=== PATIENT | male | born 1970 | race African-American/Black ===

== ENCOUNTER 2017-09-24 07:43 | Emergency (ER) | payer MEDICAID ==
[~2017-09-24] VITALS: Ht 180.3 cm; Wt 161.0 kg
[2017-09-24] VITALS (11 sets, daily range): BP systolic 160–216; BP diastolic 90–111
[~2017-09-24 07:43] MED LIST: AMLO10TA80 PO; DOCU-138 PO; FAMO20TA8 PO; GABA-531 PO; INSLIS SUBCUT; LANTUSUD SUBCUT; LISI-604 PO; NEPVIT PO
[2017-09-24] MEDS ORDERED: OXYCODONE HCL/ACETAMINOPHEN 5/325MG TABLET PO ONE (08:45)
[2017-09-24 09:05] LABS: BASOPHILS % 0.5 % (0.0-2.0); EOSINOPHILS % 8.8 % (0.0-5.0); HEMATOCRIT. 33.5 % (42.0-52.0); HEMOGLOBIN. 10.9 g/dL (14.0-18.0); LYMPHOCYTES % 33.5 % (20.0-50.0); MEAN CORPUSCULAR HEMOGLOBIN 30.1 pg (28.0-32.0); MEAN PLATELET VOLUME 8.4 fl (7.4-10.4); MONOCYTES % 9.6 % (2.0-8.0); NEUTROPHILS % 47.6 % (40.0-76.0); PLATELET 196 x1000/uL (130-400); RED BLOOD CELL COUNT 3.64 mill/uL (4.7-6.1); RED CELL DISTRIBUTION WIDTH 15.6 % (11.6-14.6)
[2017-09-24 09:12] LABS: CHLORIDE 102 mEq/L (98-107)
[2017-09-24 09:30] LABS: INR 1.1; PROTHROMBIN TIME 11.5 sec (9.4-11.6)
[2017-09-24] MEDS ORDERED: LIDOCAINE HCL 1% 20ML VIAL (Pyxis) INJ ONE (10:55)
[2017-09-24] MEDS ORDERED: SODIUM BICARBONATE 4% (2.4MEQ) 5ML VIAL IV ONE (10:55)
[2017-09-24] MEDS ORDERED: FENTANYL CITRATE/PF 50MCG/ML 2ML VIAL ONE (11:14)
== END 2017-09-24 14:00 | disposition home or self-care (01) ==
LOC: ER 08:35
DX: T82.898A Other specified complication of vascular prosthetic devices, implants and grafts, initial encounter (principal); E11.22 Type 2 diabetes mellitus with diabetic chronic kidney disease; I12.0 Hypertensive chronic kidney disease with stage 5 chronic kidney disease or end stage renal disease; N18.6 End stage renal disease; Z99.2 Dependence on renal dialysis; Z79.4 Long term (current) use of insulin; Z89.512 Acquired absence of left leg below knee; Z89.511 Acquired absence of right leg below knee; Z99.3 Dependence on wheelchair; Z79.01 Long term (current) use of anticoagulants; Y84.1 Kidney dialysis as the cause of abnormal reaction of the patient, or of later complication, without mention of misadventure at the time of the procedure; Y92.018 Other place in single-family (private) house as the place of occurrence of the external cause
CPT/HCPCS: 36415; 36569; 36581; 75825; 77001; 80053; 85025; 85610; 93005; 99285; C1725; C1750; C1766; C1769; J1642; J3010; J3490; Z7610; 99284

== ENCOUNTER 2018-03-12 12:35 | Emergency (ER) | payer MEDICAID ==
[~2018-03-12] VITALS: Ht 172.7 cm; Wt 80.0 kg
[2018-03-12] MEDS ORDERED: FLUORESCEIN SODIUM 1MG/STRIP BOTHEYE ONE (13:15)
[2018-03-12] MEDS ORDERED: TETRACAINE 0.5% OPHTH DROPS 4ML BOTHEYE ONE (13:15)
[2018-03-12] MEDS ORDERED: SULFACETAMIDE SODIUM 10% OPHTH DROPS 15ML BOTHEYE STA (13:47)
[2018-03-12] MEDS ORDERED: TIMOLOL MALEATE 0.5% OPHTH DROPS 5ML EACHEYE STA (13:47)
[2018-03-12] MEDS ORDERED: PILOCARPINE HCL 2% OPHTH DROPS 15ML BOTHEYE STA (13:47)
[2018-03-12] MEDS ORDERED: BRIMONIDINE 0.2% OPHTH DROPS 5ML BOTHEYE STA (13:59)
[2018-03-12] MEDS ORDERED: ACETAZOLAMIDE SODIUM 500MG/VIAL IV ONE (14:00)
[2018-03-12] MEDS ORDERED: MANNITOL 20% (20GM/100ML) BAG 500ML PREMIX IV ONE (14:15)
[2018-03-12 15:22] LABS: BASOPHILS % 0.4 % (0.0-2.0); EOSINOPHILS % 4.7 % (0.0-5.0); HEMATOCRIT. 38.8 % (42.0-52.0); HEMOGLOBIN. 12.9 g/dL (14.0-18.0); LYMPHOCYTES % 23.7 % (20.0-50.0); MEAN CORPUSCULAR HEMOGLOBIN 30.6 pg (28.0-32.0); MEAN CORPUSCULAR VOLUME 92.1 fL (80.0-94.0); MEAN PLATELET VOLUME 8.8 fl (7.4-10.4); MONOCYTES % 9.5 % (2.0-8.0); NEUTROPHILS % 61.7 % (40.0-76.0); PLATELET 183 x1000/uL (130-400); RED BLOOD CELL COUNT 4.21 mill/uL (4.7-6.1); RED CELL DISTRIBUTION WIDTH 16.2 % (11.6-14.6)
[2018-03-12 15:30] LABS: CHLORIDE 103 mEq/L (98-107)
[2018-03-12 15:31] LABS: INR 1.1; PARTIAL THROMBOPLASTIN TIME 35.1 sec (23.4-31.0); PROTHROMBIN TIME 10.8 sec (9.1-11.1)
[2018-03-12 18:08] VITALS: BP 148/90
== END 2018-03-12 18:20 | disposition short-term general hospital (02) ==
LOC: ER 12:35
DX: H40.20X0 Unspecified primary angle-closure glaucoma, stage unspecified (principal); H10.33 Unspecified acute conjunctivitis, bilateral; I13.10 Hypertensive heart and chronic kidney disease without heart failure, with stage 1 through stage 4 chronic kidney disease, or unspecified chronic kidney disease; E11.22 Type 2 diabetes mellitus with diabetic chronic kidney disease; N18.9 Chronic kidney disease, unspecified; Z79.4 Long term (current) use of insulin; Z89.512 Acquired absence of left leg below knee; Z79.899 Other long term (current) drug therapy; Z98.890 Other specified postprocedural states
CPT/HCPCS: 36415; 71045; 80053; 85025; 85610; 85730; 86850; 86900; 86901; 93005; 96374; 96375; 99285; J1120; J3490

== ENCOUNTER 2019-01-30 13:08 | Inpatient (IN) | payer MEDICAID ==
[~2019-01-30] VITALS: Ht 180.3 cm; Wt 136.1 kg
[2019-01-30] MEDS ORDERED: MORPHINE SULFATE 4 MG/ML CPJ (NOT FOR IM USE) IV STA (14:59)
[2019-01-30 15:11] LABS: BASOPHILS % 0.7 % (0.0-2.0); EOSINOPHILS % 7.4 % (0.0-5.0); HEMATOCRIT. 42.6 % (42.0-52.0); HEMOGLOBIN. 13.9 g/dL (14.0-18.0); MEAN CORPUSCULAR HEMOGLOBIN 30.1 pg (28.0-32.0); MEAN CORPUSCULAR VOLUME 92.2 fL (80.0-94.0); MEAN PLATELET VOLUME 8.9 fl (7.4-10.4); MONOCYTES % 6.1 % (2.0-8.0); NEUTROPHILS % 56.8 % (40.0-76.0); PLATELET 183 x1000/uL (130-400); RED BLOOD CELL COUNT 4.62 mill/uL (4.7-6.1); RED CELL DISTRIBUTION WIDTH 16.2 % (11.6-14.6)
[2019-01-30 15:14] LABS: CHLORIDE 99 mEq/L (98-107)
[2019-01-30 15:16] LABS: INR 1.1; PROTHROMBIN TIME 11.7 sec (9.6-11.0)
[2019-01-30] MEDS ORDERED: ACETAMINOPHEN 325MG TABLET PO PRN (18:15)
[2019-01-30] MEDS ORDERED: ONDANSETRON HCL 4MG/2ML INJ IV PRN (18:15)
[2019-01-30] MEDS ORDERED: ACETAMINOPHEN 325MG TABLET PO ONE (18:15)
[2019-01-30] MEDS: MORPHINE SULFATE 2 MG/ML CPJ (NOT FOR IM USE) IV PRN ×2 (18:43→23:25)
[2019-01-30 22:35] VITALS: BP 141/81
[2019-01-30] MEDS ORDERED: DEXTROSE 50% WATER 50ML SYRINGE IV PRN (23:00)
[2019-01-30] MEDS: DIPHENHYDRAMINE 50MG/ML VIAL IV PRN (23:25)
[2019-01-31 04:00] VITALS: BP 144/68
[2019-01-31] MEDS: MORPHINE SULFATE 2 MG/ML CPJ (NOT FOR IM USE) IV PRN ×2 (04:23→20:46)
[2019-01-31] MEDS: BLOOD SUGAR DIAGNOSTIC STRIP TEST SCH ×4 (06:13→20:49)
[2019-01-31] MEDS: INSULIN LISPRO 100 UNITS/ML SUBCUT SCH ×4 (06:13→21:00)
[2019-01-31 08:00] VITALS: BP 140/82
[2019-01-31] MEDS ORDERED: PNEUMOCOCCAL 23-VAL P-SAC VAC 0.5 ML IM ONE (08:00)
[2019-01-31 08:07] LABS: BASOPHILS % 0.5 % (0.0-2.0); EOSINOPHILS % 6.7 % (0.0-5.0); HEMATOCRIT. 38.7 % (42.0-52.0); HEMOGLOBIN. 12.7 g/dL (14.0-18.0); LYMPHOCYTES % 34.9 % (20.0-50.0); MEAN CORPUSCULAR HEMOGLOBIN 30.3 pg (28.0-32.0); MEAN PLATELET VOLUME 8.9 fl (7.4-10.4); MONOCYTES % 8.3 % (2.0-8.0); NEUTROPHILS % 49.6 % (40.0-76.0); PLATELET 146 x1000/uL (130-400); RED CELL DISTRIBUTION WIDTH 16.1 % (11.6-14.6)
[2019-01-31] MEDS: ASPIRIN 81MG TABLET PO SCH (08:20)
[2019-01-31 08:52] LABS: CHLORIDE 103 mEq/L (98-107)
[2019-01-31] MEDS ORDERED: NIFEDIPINE XL 60MG TAB PO SCH (09:00)
[2019-01-31 12:00] VITALS: BP 147/69
[2019-01-31] MEDS ORDERED: ALTEPLASE 2MG/VIAL ITC NR (12:30)
[2019-01-31] MEDS: DIPHENHYDRAMINE 50MG/ML VIAL IV PRN (14:22)
[2019-01-31 16:00] VITALS: BP 129/63
[2019-01-31 21:00] VITALS: BP 142/49
[2019-02-01] VITALS (16 sets, daily range): BP systolic 134–170; BP diastolic 68–98
[2019-02-01] MEDS: DIPHENHYDRAMINE 50MG/ML VIAL IV PRN (03:38)
[2019-02-01] MEDS: BLOOD SUGAR DIAGNOSTIC STRIP TEST SCH ×3 (06:34→16:27)
[2019-02-01] MEDS: INSULIN LISPRO 100 UNITS/ML SUBCUT SCH ×3 (06:34→16:28)
[2019-02-01] MEDS ORDERED: LIDOCAINE HCL 1% 20ML VIAL (Pyxis) INJ ONE (08:59)
[2019-02-01] MEDS ORDERED: SODIUM BICARBONATE 4% (2.4MEQ) 5ML VIAL IV ONE (08:59)
[2019-02-01] MEDS ORDERED: CEFAZOLIN 1000MG PREMIX 50 ML IV ONE ×2 (10:19→11:00)
[2019-02-01] MEDS ORDERED: FENTANYL CITRATE/PF 50MCG/ML 2ML VIAL ONE (10:20)
[2019-02-01] MEDS ORDERED: FENTANYL CITRATE/PF 50MCG/ML 2ML VIAL IV ONE (10:45)
[2019-02-01] MEDS: ASPIRIN 81MG TABLET PO SCH (12:29)
[2019-02-01] MEDS ORDERED: HEPARIN SODIUM 1,000 UNIT/1ML VIAL IV NR (15:15)
[2019-02-01] MEDS: MORPHINE SULFATE 2 MG/ML CPJ (NOT FOR IM USE) IV PRN (16:26)
== END 2019-02-01 19:45 | disposition home or self-care (01) | DRG 466 ==
LOC: ER 13:08 → EDBEDREQ 15:21 → 8WST 17:09 → EDBEDREQTM 17:13 → EDBEDREQ 17:13 → ENRESERV 20:57 → 8WST 01-31 23:04
PROVIDERS: ADMIT Internal Medicine; ATTEND Internal Medicine
PROC: 5A1D70Z Performance of Urinary Filtration, Intermittent, Less than 6 Hours Per Day (ICD-10-PCS; principal; 2019-01-31)
PROC: 0JHM3XZ Insertion of Tunneled Vascular Access Device into Left Upper Leg Subcutaneous Tissue and Fascia, Percutaneous Approach (ICD-10-PCS; 2019-02-01)
PROC: 06H033Z Insertion of Infusion Device into Inferior Vena Cava, Percutaneous Approach (ICD-10-PCS; 2019-02-01)
PROC: B5191ZA Fluoroscopy of Inferior Vena Cava using Low Osmolar Contrast, Guidance (ICD-10-PCS; 2019-02-01)
DX: T82.898A Other specified complication of vascular prosthetic devices, implants and grafts, initial encounter (principal); I12.0 Hypertensive chronic kidney disease with stage 5 chronic kidney disease or end stage renal disease; I24.8 Other forms of acute ischemic heart disease; N18.6 End stage renal disease; E66.01 Morbid (severe) obesity due to excess calories; I44.0 Atrioventricular block, first degree; H54.7 Unspecified visual loss; Y73.8 Miscellaneous gastroenterology and urology devices associated with adverse incidents, not elsewhere classified; Z68.41 Body mass index [BMI] 40.0-44.9, adult; Z89.611 Acquired absence of right leg above knee; Z89.612 Acquired absence of left leg above knee; Z99.2 Dependence on renal dialysis; Z79.899 Other long term (current) drug therapy; Y92.89 Other specified places as the place of occurrence of the external cause; Z79.82 Long term (current) use of aspirin
CPT/HCPCS: 36415; 36581; 71045; 77001; 80048; 82962; 83605; 83880; 84484; 90732; 93005; 93306; 96374; 99152; 99153; 99285; C1725; C1750; C1769; C1893; J0690; J1200; J1642; J1644; J2270; J2997; J3010; J3490; G0500

== ENCOUNTER 2019-11-02 07:13 | Inpatient (IN) | payer MEDICAID ==
[~2019-11-02] VITALS: Ht 152.4 cm; Wt 146.3 kg
[2019-11-02 08:34] LABS: BASOPHILS % 0.6 % (0.0-2.0); EOSINOPHILS % 9.2 % (0.0-5.0); HEMOGLOBIN. 11.9 g/dL (14.0-18.0); LYMPHOCYTES % 30.6 % (20.0-50.0); MEAN CORPUSCULAR HEMOGLOBIN 30.7 pg (28.0-32.0); MEAN CORPUSCULAR VOLUME 92.8 fL (80.0-94.0); MEAN PLATELET VOLUME 9.3 fl (7.4-10.4); MONOCYTES % 7.9 % (2.0-8.0); NEUTROPHILS % 51.7 % (40.0-76.0); PLATELET 163 x1000/uL (130-400); RED BLOOD CELL COUNT 3.88 mill/uL (4.7-6.1); RED CELL DISTRIBUTION WIDTH 15.2 % (11.6-14.6)
[2019-11-02] MEDS ORDERED: ALTEPLASE 2MG/VIAL ITC STA (09:15)
[2019-11-02] MEDS ORDERED: IOHEXOL-300 100 ML BOTTLE ONE (10:59)
[2019-11-02] MEDS ORDERED: ACETAMINOPHEN 325MG TABLET PO PRN (12:30)
[2019-11-02] MEDS ORDERED: DIPHENHYDRAMINE 50MG/ML VIAL IV PRN (12:30)
[2019-11-02] MEDS ORDERED: CLONIDINE 0.1MG TABLET PO PRN (12:30)
[2019-11-02] MEDS ORDERED: ONDANSETRON HCL 4MG/2ML INJ IV PRN (12:30)
[2019-11-02] MEDS ORDERED: IPRATROPIUM/ALBUTEROL 0.5-3(2.5)MG/3ML NEB HHN PRN (12:30)
[2019-11-02 12:48] LABS: PHOSPHORUS 4.5 mg/dL (2.5-4.9)
[2019-11-02 14:00] VITALS: BP 148/83
[2019-11-02 14:48] VITALS: BP 148/83
[2019-11-02 16:00] VITALS: BP 116/61
[2019-11-02] MEDS ORDERED: MORPHINE SULFATE 2 MG/ML CPJ (NOT FOR IM USE) IV PRN (18:45)
[2019-11-02 20:49] VITALS: BP 120/72
[2019-11-02] MEDS: HEPARIN 5000 UNITS/ML VIAL SUBCUT SCH (20:50)
[2019-11-03 00:24] VITALS: BP 164/91
[2019-11-03] MEDS ORDERED: HEPARIN SODIUM 1,000 UNIT/1ML VIAL IV NR (00:30)
[2019-11-03 04:00] VITALS: BP 143/80
[2019-11-03 06:18] LABS: BASOPHILS % 0.5 % (0.0-2.0); EOSINOPHILS % 9.7 % (0.0-5.0); HEMATOCRIT. 35.6 % (42.0-52.0); HEMOGLOBIN. 11.8 g/dL (14.0-18.0); LYMPHOCYTES % 28.4 % (20.0-50.0); MEAN CORPUSCULAR VOLUME 93.7 fL (80.0-94.0); MEAN PLATELET VOLUME 9.9 fl (7.4-10.4); MONOCYTES % 7.5 % (2.0-8.0); NEUTROPHILS % 53.9 % (40.0-76.0); PLATELET 134 x1000/uL (130-400); RED CELL DISTRIBUTION WIDTH 15.4 % (11.6-14.6)
[2019-11-03 06:33] LABS: CHLORIDE 101 mEq/L (98-107)
[2019-11-03 06:58] LABS: LDL CHOLESTEROL 48 mg/dL (5-100)
[2019-11-03 07:00] LABS: HDL CHOLESTEROL 32 mg/dL (40-59)
[2019-11-03 08:00] VITALS: BP 165/85
[2019-11-03] MEDS: HEPARIN 5000 UNITS/ML VIAL SUBCUT SCH (09:23)
[2019-11-03 11:37] VITALS: BP 172/88
[2019-11-03] MEDS ORDERED: AMLODIPINE 10MG TABLET PO NR (12:30)
[2019-11-03 13:44] VITALS: BP 123/76
== END 2019-11-03 21:37 | disposition home or self-care (01) | DRG 206 ==
LOC: ER 07:36 → ENRESERV 10:11 → 6WST 11:08 → EDBEDREQTM 11:13 → EDBEDREQ 11:13 → UNDODISIN 11-03 16:17
PROVIDERS: ADMIT Internal Medicine; ATTEND Internal Medicine
PROC: 5A1D70Z Performance of Urinary Filtration, Intermittent, Less than 6 Hours Per Day (ICD-10-PCS; principal; 2019-11-02)
PROC: 3E03317 Introduction of Other Thrombolytic into Peripheral Vein, Percutaneous Approach (ICD-10-PCS; 2019-11-02)
DX: T82.868A Thrombosis due to vascular prosthetic devices, implants and grafts, initial encounter (principal); E11.22 Type 2 diabetes mellitus with diabetic chronic kidney disease; E83.42 Hypomagnesemia; E87.5 Hyperkalemia; I12.0 Hypertensive chronic kidney disease with stage 5 chronic kidney disease or end stage renal disease; N18.6 End stage renal disease; Y71.2 Prosthetic and other implants, materials and accessory cardiovascular devices associated with adverse incidents; T82.49XA Other complication of vascular dialysis catheter, initial encounter; Z20.828 Contact with and (suspected) exposure to other viral communicable diseases; Z89.511 Acquired absence of right leg below knee; Z89.512 Acquired absence of left leg below knee; Z99.2 Dependence on renal dialysis; Y92.89 Other specified places as the place of occurrence of the external cause; Z79.899 Other long term (current) drug therapy; Z79.4 Long term (current) use of insulin
CPT/HCPCS: 36415; 74177; 80048; 80053; 80061; 82962; 83735; 84100; 84443; 85025; 87635; 93005; 93971; 99285; J1644; J2997; Q9967

== ENCOUNTER 2019-11-07 06:58 | Emergency (ER) | payer MEDICAID ==
[~2019-11-07] VITALS: Ht 167.6 cm; Wt 150.0 kg
[2019-11-07 08:18] LABS: BASOPHILS % 0.8 % (0.0-2.0); EOSINOPHILS % 8.8 % (0.0-5.0); HEMATOCRIT. 31.8 % (42.0-52.0); HEMOGLOBIN. 10.8 g/dL (14.0-18.0); LYMPHOCYTES % 27.7 % (20.0-50.0); MEAN CORPUSCULAR HEMOGLOBIN 31.7 pg (28.0-32.0); MEAN CORPUSCULAR VOLUME 93.4 fL (80.0-94.0); MEAN PLATELET VOLUME 9.8 fl (7.4-10.4); MONOCYTES % 9.1 % (2.0-8.0); NEUTROPHILS % 53.6 % (40.0-76.0); PLATELET 133 x1000/uL (130-400); RED CELL DISTRIBUTION WIDTH 15.3 % (11.6-14.6)
[2019-11-07 08:24] LABS: INR 1.2; PROTHROMBIN TIME 12.3 sec (9.6-11.0)
[2019-11-07 08:37] LABS: CHLORIDE 99 mEq/L (98-107)
[2019-11-07 11:07] VITALS: BP 135/87
== END 2019-11-07 11:07 | disposition home or self-care (01) ==
LOC: ER 07:12 → CANBEDREQ 15:18
DX: T82.41XA Breakdown (mechanical) of vascular dialysis catheter, initial encounter (principal); Y82.8 Other medical devices associated with adverse incidents; Y92.89 Other specified places as the place of occurrence of the external cause; I12.0 Hypertensive chronic kidney disease with stage 5 chronic kidney disease or end stage renal disease; E11.22 Type 2 diabetes mellitus with diabetic chronic kidney disease; N18.6 End stage renal disease; D64.9 Anemia, unspecified; H54.7 Unspecified visual loss; Z99.2 Dependence on renal dialysis; Z79.4 Long term (current) use of insulin; Z79.899 Other long term (current) drug therapy
CPT/HCPCS: 36415; 71045; 80053; 85025; 93005; 99285

== ENCOUNTER 2019-11-18 07:28 | Emergency (ER) | payer MEDICAID ==
[~2019-11-18] VITALS: Ht 172.7 cm; Wt 153.0 kg
[2019-11-18] MEDS ORDERED: OXYCODONE HCL/ACETAMINOPHEN 5/325MG TABLET PO ONE (08:15)
[2019-11-18] MEDS ORDERED: MORPHINE SULFATE 4 MG/ML CPJ (NOT FOR IM USE) IV ONE (11:00)
[2019-11-18 12:45] VITALS: BP 140/84
== END 2019-11-18 13:15 | disposition home or self-care (01) ==
LOC: ER 07:28 → CANBEDREQ 15:27
DX: G89.18 Other acute postprocedural pain (principal); R51 Headache; E11.9 Type 2 diabetes mellitus without complications; Z79.899 Other long term (current) drug therapy; Z79.4 Long term (current) use of insulin
CPT/HCPCS: 70486; 96374; 99284; J2270

== ENCOUNTER 2019-12-05 22:59 | Inpatient (IN) | payer MEDICAID ==
[~2019-12-05] VITALS: Ht 167.6 cm; Wt 160.1 kg
[2019-12-06] MEDS ORDERED: KETOROLAC 30MG/ML VIAL IV STA (00:11)
[2019-12-06] MEDS ORDERED: ONDANSETRON HCL 4MG/2ML INJ IV STA ×2 (00:11→01:44)
[2019-12-06] MEDS ORDERED: SODIUM CHLORIDE 0.9% 500 ML IV ONE (00:15)
[2019-12-06 00:59] LABS: BASOPHILS % 0.9 % (0.0-2.0); EOSINOPHILS % 13.8 % (0.0-5.0); HEMATOCRIT. 25.9 % (42.0-52.0); HEMOGLOBIN. 8.5 g/dL (14.0-18.0); LYMPHOCYTES % 19.1 % (20.0-50.0); MEAN CORPUSCULAR HEMOGLOBIN 30.8 pg (28.0-32.0); MEAN CORPUSCULAR VOLUME 94.1 fL (80.0-94.0); MEAN PLATELET VOLUME 9.5 fl (7.4-10.4); NEUTROPHILS % 58.2 % (40.0-76.0); PLATELET 203 x1000/uL (130-400); RED BLOOD CELL COUNT 2.75 mill/uL (4.7-6.1)
[2019-12-06 01:07] LABS: CHLORIDE 99 mEq/L (98-107)
[2019-12-06] MEDS ORDERED: MORPHINE SULFATE 4 MG/ML CPJ (NOT FOR IM USE) IV STA (01:44)
[2019-12-06 03:04] LABS: INR 1.2; PROTHROMBIN TIME 12.4 sec (9.6-11.0)
[2019-12-06 04:30] LABS: BASOPHILS % 0.5 % (0.0-2.0); EOSINOPHILS % 9.5 % (0.0-5.0); HEMATOCRIT. 23.2 % (42.0-52.0); HEMOGLOBIN. 7.6 g/dL (14.0-18.0); LYMPHOCYTES % 11.6 % (20.0-50.0); MEAN CORPUSCULAR HEMOGLOBIN 30.8 pg (28.0-32.0); MEAN CORPUSCULAR VOLUME 93.7 fL (80.0-94.0); MEAN PLATELET VOLUME 9.7 fl (7.4-10.4); MONOCYTES % 5.9 % (2.0-8.0); NEUTROPHILS % 72.5 % (40.0-76.0); PLATELET 180 x1000/uL (130-400); RED BLOOD CELL COUNT 2.48 mill/uL (4.7-6.1)
[2019-12-06] MEDS: MORPHINE SULFATE 2 MG/ML CPJ (NOT FOR IM USE) IV PRN ×3 (08:51→22:58)
[2019-12-06] MEDS ORDERED: DEXTROSE 50% WATER 50ML SYRINGE IV PRN (09:00)
[2019-12-06] MEDS ORDERED: ACETAMINOPHEN 325MG TABLET PO PRN (09:00)
[2019-12-06] MEDS: BLOOD SUGAR DIAGNOSTIC STRIP TEST SCH ×4 (09:00→21:00)
[2019-12-06] MEDS ORDERED: ONDANSETRON HCL 4MG/2ML INJ IV PRN (09:00)
[2019-12-06] MEDS ORDERED: NOREPINEPHRINE 8MG/250ML PMX 250 ML IV PRN (09:45)
[2019-12-06] MEDS ORDERED: SODIUM CHLORIDE 0.9% 250 ML IV ONE (09:45)
[2019-12-06] MEDS: MIDODRINE HCL 5MG TABLET PO SCH ×2 (10:17→17:00)
[2019-12-06] MEDS ORDERED: LIDOCAINE HCL 1% 20ML VIAL (Pyxis) INJ ONE (11:47)
[2019-12-06 12:00] LABS: HEMATOCRIT 25.6 % (42.0-52.0); HEMOGLOBIN 8.5 g/dL (14.0-18.0)
[2019-12-06 20:50] LABS: HEMATOCRIT 20.9 % (42.0-52.0)
[2019-12-06 20:51] LABS: HEMOGLOBIN 7.2 g/dL (14.0-18.0)
[2019-12-06 22:30] VITALS: BP 124/72
[2019-12-06 23:00] VITALS: BP 123/68
[2019-12-06 23:30] VITALS: BP 118/57
[2019-12-06 23:35] VITALS: BP 118/57
[2019-12-06 23:40] VITALS: BP 124/72
[2019-12-06 23:50] VITALS: BP 117/64
[2019-12-07] VITALS (88 sets, daily range): BP systolic 59–163; BP diastolic 22–104
[2019-12-07] MEDS ORDERED: KETO5DRO37 RIGHTEYE (00:26)
[2019-12-07] MEDS ORDERED: DORZ10DR12 OP (00:26)
[2019-12-07 05:55] LABS: BASOPHILS % 0.4 % (0.0-2.0); EOSINOPHILS % 3.6 % (0.0-5.0); HEMATOCRIT. 23.1 % (42.0-52.0); HEMOGLOBIN. 7.7 g/dL (14.0-18.0); LYMPHOCYTES % 13.3 % (20.0-50.0); MEAN CORPUSCULAR HEMOGLOBIN 30.6 pg (28.0-32.0); MEAN CORPUSCULAR VOLUME 91.8 fL (80.0-94.0); MEAN PLATELET VOLUME 10.1 fl (7.4-10.4); MONOCYTES % 7.8 % (2.0-8.0); NEUTROPHILS % 74.9 % (40.0-76.0); PLATELET 162 x1000/uL (130-400); RED BLOOD CELL COUNT 2.52 mill/uL (4.7-6.1); RED CELL DISTRIBUTION WIDTH 15.4 % (11.6-14.6)
[2019-12-07] MEDS: MORPHINE SULFATE 2 MG/ML CPJ (NOT FOR IM USE) IV PRN (06:35)
[2019-12-07] MEDS: BLOOD SUGAR DIAGNOSTIC STRIP TEST SCH ×4 (07:50→21:37)
[2019-12-07] MEDS: MIDODRINE HCL 5MG TABLET PO SCH ×3 (09:09→17:00)
[2019-12-07] MEDS ORDERED: INFLUENZA VACCINE 05/PF 0.5 ML VIAL IM ONE (10:00)
[2019-12-07] MEDS: NOREPINEPHRINE 8 MG in DEXTROSE 5% WATER 250 ML IV PRN ×2 (10:29→23:06)
[2019-12-07] MEDS: DORZOLAM/TIMOLOL 2.23/0.68% OPHTH DROPS 10ML RIGHTEYE SCH ×2 (14:00→21:23)
[2019-12-07] MEDS: KETOROLAC TROMETHAMINE 0.4% OPHTH 5ML RIGHTEYE SCH ×2 (14:00→17:42)
[2019-12-07 17:27] LABS: HEMATOCRIT 22.2 % (42.0-52.0); HEMOGLOBIN 7.3 g/dL (14.0-18.0)
[2019-12-08] VITALS (113 sets, daily range): BP systolic 56–173; BP diastolic 18–125
[2019-12-08] MEDS: MORPHINE SULFATE 2 MG/ML CPJ (NOT FOR IM USE) IV PRN ×2 (00:03→13:52)
[2019-12-08] MEDS: KETOROLAC TROMETHAMINE 0.4% OPHTH 5ML RIGHTEYE SCH ×4 (00:04→19:13)
[2019-12-08 01:06] LABS: HEMATOCRIT 22.1 % (42.0-52.0); HEMOGLOBIN 7.3 g/dL (14.0-18.0)
[2019-12-08 06:28] LABS: BASOPHILS % 0.7 % (0.0-2.0); EOSINOPHILS % 9.3 % (0.0-5.0); HEMATOCRIT. 22.4 % (42.0-52.0); HEMOGLOBIN. 7.4 g/dL (14.0-18.0); MEAN CORPUSCULAR HEMOGLOBIN 31.1 pg (28.0-32.0); MEAN CORPUSCULAR VOLUME 93.7 fL (80.0-94.0); MEAN PLATELET VOLUME 9.4 fl (7.4-10.4); MONOCYTES % 10.5 % (2.0-8.0); NEUTROPHILS % 61.5 % (40.0-76.0); PLATELET 163 x1000/uL (130-400); RED BLOOD CELL COUNT 2.39 mill/uL (4.7-6.1); RED CELL DISTRIBUTION WIDTH 15.9 % (11.6-14.6)
[2019-12-08] MEDS: BLOOD SUGAR DIAGNOSTIC STRIP TEST SCH ×4 (06:30→21:00)
[2019-12-08] MEDS: DORZOLAM/TIMOLOL 2.23/0.68% OPHTH DROPS 10ML RIGHTEYE SCH ×2 (09:24→21:31)
[2019-12-08] MEDS: MIDODRINE HCL 5MG TABLET PO SCH ×3 (09:24→19:13)
[2019-12-08] MEDS: HYDROCODONE/ACETAMINOPHEN 10/325MG TABLET PO PRN (09:26)
[2019-12-08] MEDS ORDERED: LEVOFLOXACIN 500MG PREMIX 100 ML IV NR (12:30)
[2019-12-08] MEDS ORDERED: DEXTROSE 50% WATER 50ML SYRINGE IV PRN (13:00)
[2019-12-08 16:39] LABS: HEMATOCRIT 20.2 % (42.0-52.0); HEMOGLOBIN 6.7 g/dL (14.0-18.0)
[2019-12-09] VITALS (46 sets, daily range): BP systolic 90–139; BP diastolic 39–75
[2019-12-09] MEDS: KETOROLAC TROMETHAMINE 0.4% OPHTH 5ML RIGHTEYE SCH ×4 (00:14→18:19)
[2019-12-09] MEDS: HYDROCODONE/ACETAMINOPHEN 10/325MG TABLET PO PRN ×3 (00:14→21:36)
[2019-12-09 03:13] LABS: HEMATOCRIT. 26.4 % (42.0-52.0); HEMOGLOBIN. 8.6 g/dL (14.0-18.0); MEAN CORPUSCULAR HEMOGLOBIN 30.9 pg (28.0-32.0); MEAN CORPUSCULAR VOLUME 94.4 fL (80.0-94.0); MEAN PLATELET VOLUME 8.7 fl (7.4-10.4); PLATELET 155 x1000/uL (130-400); RED BLOOD CELL COUNT 2.79 mill/uL (4.7-6.1)
[2019-12-09] MEDS: BLOOD SUGAR DIAGNOSTIC STRIP TEST SCH ×4 (07:50→21:37)
[2019-12-09] MEDS: DORZOLAM/TIMOLOL 2.23/0.68% OPHTH DROPS 10ML RIGHTEYE SCH ×2 (08:59→21:36)
[2019-12-09 09:40] LABS: PLATELET ESTIMATE NORMAL
[2019-12-09] MEDS: MIDODRINE HCL 5MG TABLET PO SCH ×3 (10:00→16:59)
[2019-12-09] MEDS: LEVOTHYROXINE SODIUM 50MCG TABLET PO SCH (13:51)
[2019-12-10] VITALS (34 sets, daily range): BP systolic 89–150; BP diastolic 35–78
[2019-12-10] MEDS: KETOROLAC TROMETHAMINE 0.4% OPHTH 5ML RIGHTEYE SCH ×4 (00:12→17:38)
[2019-12-10] MEDS ORDERED: DOPAMINE 400MG/250ML PREMIX 250 ML IV PRN (00:30)
[2019-12-10] MEDS: HYDROCODONE/ACETAMINOPHEN 10/325MG TABLET PO PRN (05:01)
[2019-12-10 05:48] LABS: HEMATOCRIT. 26.4 % (42.0-52.0); HEMOGLOBIN. 8.8 g/dL (14.0-18.0); MEAN CORPUSCULAR HEMOGLOBIN 31.9 pg (28.0-32.0); MEAN CORPUSCULAR VOLUME 95.1 fL (80.0-94.0); MEAN PLATELET VOLUME 9.2 fl (7.4-10.4); PLATELET 187 x1000/uL (130-400); RED BLOOD CELL COUNT 2.77 mill/uL (4.7-6.1); RED CELL DISTRIBUTION WIDTH 15.2 % (11.6-14.6)
[2019-12-10] MEDS: MIDODRINE HCL 5MG TABLET PO SCH ×3 (08:11→17:38)
[2019-12-10] MEDS: DORZOLAM/TIMOLOL 2.23/0.68% OPHTH DROPS 10ML RIGHTEYE SCH ×2 (08:11→21:16)
[2019-12-10] MEDS: LEVOTHYROXINE SODIUM 50MCG TABLET PO SCH (08:11)
[2019-12-10] MEDS: BLOOD SUGAR DIAGNOSTIC STRIP TEST SCH ×4 (08:11→21:16)
[2019-12-10] MEDS: MORPHINE SULFATE 2 MG/ML CPJ (NOT FOR IM USE) IV PRN ×3 (11:56→21:44)
[2019-12-10] MEDS: LEVOFLOXACIN 250MG PREMIX 50 ML IV SCH (11:57)
[2019-12-10 13:21] LABS: PLATELET ESTIMATE NORMAL
[2019-12-11] MEDS: KETOROLAC TROMETHAMINE 0.4% OPHTH 5ML RIGHTEYE SCH ×4 (00:09→18:28)
[2019-12-11 00:18] VITALS: BP 126/58
[2019-12-11] MEDS: MORPHINE SULFATE 2 MG/ML CPJ (NOT FOR IM USE) IV PRN (02:39)
[2019-12-11 04:00] VITALS: BP 133/49
[2019-12-11] MEDS: HYDROCODONE/ACETAMINOPHEN 10/325MG TABLET PO PRN ×2 (05:33→11:13)
[2019-12-11] MEDS: LEVOTHYROXINE SODIUM 50MCG TABLET PO SCH (06:13)
[2019-12-11 06:27] LABS: HEMATOCRIT. 24.5 % (42.0-52.0); HEMOGLOBIN. 8.1 g/dL (14.0-18.0); MEAN CORPUSCULAR HEMOGLOBIN 31.2 pg (28.0-32.0); MEAN CORPUSCULAR VOLUME 94.3 fL (80.0-94.0); MEAN PLATELET VOLUME 8.6 fl (7.4-10.4); PLATELET 194 x1000/uL (130-400); RED CELL DISTRIBUTION WIDTH 15.2 % (11.6-14.6)
[2019-12-11] MEDS: BLOOD SUGAR DIAGNOSTIC STRIP TEST SCH ×4 (07:20→20:59)
[2019-12-11 08:43] VITALS: BP 116/65
[2019-12-11] MEDS: DORZOLAM/TIMOLOL 2.23/0.68% OPHTH DROPS 10ML RIGHTEYE SCH ×2 (08:49→20:59)
[2019-12-11] MEDS: MIDODRINE HCL 5MG TABLET PO SCH ×2 (08:49→13:33)
[2019-12-11 12:00] VITALS: BP 128/76
[2019-12-11] MEDS ORDERED: PANTOPRAZOLE 40MG DR TABLET PO ONE (12:00)
[2019-12-11] MEDS ORDERED: OMEPRAZOLE 20MG CAPSULE EXTENDED RELEASE PO NR (12:00)
[2019-12-11] MEDS ORDERED: MORPHINE SULFATE 2 MG/ML CPJ (NOT FOR IM USE) IV NR (12:00)
[2019-12-11] MEDS ORDERED: HYDROCODONE/ACETAMINOPHEN 10/325MG TABLET PO PRN ×2 (13:45→22:15)
[2019-12-11 14:21] LABS: PLATELET ESTIMATE NORMAL
[2019-12-11 16:18] VITALS: BP 128/64
[2019-12-11 20:00] VITALS: BP 136/61
[2019-12-12] MEDS: KETOROLAC TROMETHAMINE 0.4% OPHTH 5ML RIGHTEYE SCH ×4 (00:01→18:28)
[2019-12-12 04:00] VITALS: BP 136/61
[2019-12-12] MEDS: LEVOTHYROXINE SODIUM 50MCG TABLET PO SCH (06:50)
[2019-12-12 08:00] VITALS: BP 148/71
[2019-12-12] MEDS: BLOOD SUGAR DIAGNOSTIC STRIP TEST SCH ×3 (08:10→17:20)
[2019-12-12] MEDS: DORZOLAM/TIMOLOL 2.23/0.68% OPHTH DROPS 10ML RIGHTEYE SCH (09:07)
[2019-12-12] MEDS ORDERED: DOCUSATE SODIUM 250MG CAPSULE PO SCH (11:30)
[2019-12-12] MEDS ORDERED: LACTULOSE 20G/30ML UDC PO NR (11:30)
[2019-12-12] MEDS ORDERED: LEVO50TA8 PO (11:31)
[2019-12-12] MEDS ORDERED: HYDR-4009 PO (11:31)
[2019-12-12 12:00] VITALS: BP 147/52
[2019-12-12 12:13] LABS: HEMATOCRIT. 24.8 % (42.0-52.0); HEMOGLOBIN. 8.5 g/dL (14.0-18.0); MEAN CORPUSCULAR HEMOGLOBIN 32.2 pg (28.0-32.0); MEAN CORPUSCULAR VOLUME 94.2 fL (80.0-94.0); MEAN PLATELET VOLUME 7.9 fl (7.4-10.4); PLATELET 197 x1000/uL (130-400); RED BLOOD CELL COUNT 2.63 mill/uL (4.7-6.1); RED CELL DISTRIBUTION WIDTH 15.1 % (11.6-14.6)
[2019-12-12] MEDS: LEVOFLOXACIN 250MG PREMIX 50 ML IV SCH (12:30)
[2019-12-12 14:27] LABS: PLATELET ESTIMATE NORMAL
[2019-12-12 15:23] VITALS: BP 115/66
[2019-12-12 16:00] VITALS: BP 115/66
[2019-12-12] MEDS ORDERED: LEVOFLOXACIN 250MG TABLET PO SCH (16:00)
== END 2019-12-12 18:50 | disposition home health service (06) | DRG 468 ==
LOC: ER 22:59 → CVICU 12-06 02:29 → ENRESERV 12-06 19:31 → 6WST 12-10 22:45
PROVIDERS: ADMIT Internal Medicine; ATTEND Internal Medicine
PROC: 05HY33Z Insertion of Infusion Device into Upper Vein, Percutaneous Approach (ICD-10-PCS; principal; 2019-12-06)
PROC: B54MZZA Ultrasonography of Right Upper Extremity Veins, Guidance (ICD-10-PCS; 2019-12-06)
PROC: 30233K1 Transfusion of Nonautologous Frozen Plasma into Peripheral Vein, Percutaneous Approach (ICD-10-PCS; 2019-12-06)
PROC: 30233N1 Transfusion of Nonautologous Red Blood Cells into Peripheral Vein, Percutaneous Approach (ICD-10-PCS; 2019-12-07)
PROC: 5A1D70Z Performance of Urinary Filtration, Intermittent, Less than 6 Hours Per Day (ICD-10-PCS; 2019-12-07)
PROC: 5A1D70Z Performance of Urinary Filtration, Intermittent, Less than 6 Hours Per Day (ICD-10-PCS; 2019-12-08)
PROC: 5A1D70Z Performance of Urinary Filtration, Intermittent, Less than 6 Hours Per Day (ICD-10-PCS; 2019-12-12)
DX: S37.012A Minor contusion of left kidney, initial encounter (principal); N18.6 End stage renal disease; I95.9 Hypotension, unspecified; R57.8 Other shock; E44.0 Moderate protein-calorie malnutrition; X58.XXXA Exposure to other specified factors, initial encounter; E87.2 Acidosis; R00.1 Bradycardia, unspecified; I44.0 Atrioventricular block, first degree; E11.319 Type 2 diabetes mellitus with unspecified diabetic retinopathy without macular edema; E11.51 Type 2 diabetes mellitus with diabetic peripheral angiopathy without gangrene; I12.0 Hypertensive chronic kidney disease with stage 5 chronic kidney disease or end stage renal disease; E11.22 Type 2 diabetes mellitus with diabetic chronic kidney disease; E03.9 Hypothyroidism, unspecified; E66.01 Morbid (severe) obesity due to excess calories; Z79.4 Long term (current) use of insulin; Z79.899 Other long term (current) drug therapy; Z68.43 Body mass index [BMI] 50.0-59.9, adult; Y93.89 Activity, other specified; Y92.89 Other specified places as the place of occurrence of the external cause; Y99.8 Other external cause status; Z99.2 Dependence on renal dialysis; Z89.511 Acquired absence of right leg below knee; Z89.512 Acquired absence of left leg below knee; Z95.828 Presence of other vascular implants and grafts; Z89.611 Acquired absence of right leg above knee; Z89.612 Acquired absence of left leg above knee; Z86.718 Personal history of other venous thrombosis and embolism; D62 Acute posthemorrhagic anemia
CPT/HCPCS: 36415; 71045; 74176; 76937; 80048; 80053; 82962; 83605; 84145; 84443; 85014; 85018; 85025; 86850; 86900; 86920; 86927; 90686; 93005; 93306; 99285; C1725; J1885; J1956; J2270; J2405; J3490; J7040; J7060; P9016; P9017

== ENCOUNTER 2020-01-05 10:33 | Inpatient (IN) | payer MEDICAID ==
[~2020-01-05] VITALS: Ht 180.3 cm; Wt 162.4 kg
[~2020-01-05 10:33] MED LIST changes: -AMLO10TA80 PO; +DORZ10DR12 OP; +HYDR-4009 MT; +HYDR-4009 PO; +KETO5DRO37 RIGHTEYE; +LEVO50TA8 PO; -LISI-604 PO
[2020-01-05] MEDS ORDERED: ALTEPLASE 2MG/VIAL ITC NR (11:30)
[2020-01-05 12:06] LABS: BASOPHILS % 0.6 % (0.0-2.0); CHLORIDE 99 mEq/L (98-107); EOSINOPHILS % 8.5 % (0.0-5.0); HEMATOCRIT. 25.9 % (42.0-52.0); HEMOGLOBIN. 8.4 g/dL (14.0-18.0); LYMPHOCYTES % 19.2 % (20.0-50.0); MEAN CORPUSCULAR HEMOGLOBIN 29.8 pg (28.0-32.0); MEAN CORPUSCULAR VOLUME 91.3 fL (80.0-94.0); MONOCYTES % 8.7 % (2.0-8.0); PLATELET 266 x1000/uL (130-400); RED BLOOD CELL COUNT 2.84 mill/uL (4.7-6.1); RED CELL DISTRIBUTION WIDTH 15.3 % (11.6-14.6)
[2020-01-05 12:09] LABS: INR 1.2; PROTHROMBIN TIME 12.4 sec (9.6-11.0)
[2020-01-05 16:00] VITALS: BP 125/72
[2020-01-05 17:00] VITALS: BP 125/72
[2020-01-05] MEDS: AMLODIPINE 10MG TABLET PO SCH (17:30)
[2020-01-05] MEDS ORDERED: ACETAMINOPHEN 325MG TABLET PO PRN (17:30)
[2020-01-05 20:00] VITALS: BP 140/78
[2020-01-06] VITALS: BP 151/63
[2020-01-06] MEDS ORDERED: HEPARIN SODIUM 1,000 UNIT/1ML VIAL IV SCH (00:15)
[2020-01-06 04:00] VITALS: BP 138/69
[2020-01-06 08:00] VITALS: BP 157/92
[2020-01-06] MEDS: ONDANSETRON HCL 4MG/2ML INJ IV PRN (08:08)
[2020-01-06 09:49] LABS: BASOPHILS % 1.1 % (0.0-2.0); EOSINOPHILS % 8.4 % (0.0-5.0); HEMATOCRIT. 22.7 % (42.0-52.0); HEMOGLOBIN. 7.5 g/dL (14.0-18.0); LYMPHOCYTES % 18.2 % (20.0-50.0); MEAN CORPUSCULAR HEMOGLOBIN 30.2 pg (28.0-32.0); MEAN CORPUSCULAR VOLUME 90.6 fL (80.0-94.0); MEAN PLATELET VOLUME 7.8 fl (7.4-10.4); NEUTROPHILS % 64.3 % (40.0-76.0); PLATELET 265 x1000/uL (130-400); RED CELL DISTRIBUTION WIDTH 15.3 % (11.6-14.6)
[2020-01-06] MEDS: AMLODIPINE 10MG TABLET PO SCH (09:56)
[2020-01-06] MEDS: HYDROCODONE/ACETAMINOPHEN 10/325MG TABLET PO PRN (09:58)
[2020-01-06] MEDS ORDERED: LACTULOSE 20G/30ML UDC PO ONE (10:30)
[2020-01-06 12:00] VITALS: BP 142/70
[2020-01-06] MEDS ORDERED: ALTEPLASE 2MG/VIAL ITC NR (12:00)
[2020-01-06 16:00] VITALS: BP 123/67
[2020-01-06 20:00] VITALS: BP 116/67
[2020-01-06] MEDS: EPOETIN ALFA-EPBX 10,000 UNIT/ML VIAL SUBCUT SCH ×2 (21:00→21:48)
[2020-01-07] VITALS: BP 129/65
[2020-01-07 04:00] VITALS: BP 143/75
[2020-01-07 07:25] LABS: BASOPHILS % 0.8 % (0.0-2.0); EOSINOPHILS % 6.7 % (0.0-5.0); HEMOGLOBIN. 8.5 g/dL (14.0-18.0); LYMPHOCYTES % 19.2 % (20.0-50.0); MEAN CORPUSCULAR HEMOGLOBIN 29.6 pg (28.0-32.0); MEAN CORPUSCULAR VOLUME 91.2 fL (80.0-94.0); MEAN PLATELET VOLUME 8.4 fl (7.4-10.4); MONOCYTES % 8.5 % (2.0-8.0); NEUTROPHILS % 64.8 % (40.0-76.0); PLATELET 224 x1000/uL (130-400); RED BLOOD CELL COUNT 2.85 mill/uL (4.7-6.1); RED CELL DISTRIBUTION WIDTH 15.5 % (11.6-14.6)
[2020-01-07 08:00] VITALS: BP 119/66
[2020-01-07] MEDS: AMLODIPINE 10MG TABLET PO SCH (09:12)
[2020-01-07 12:00] VITALS: BP 124/77
[2020-01-07] MEDS: ONDANSETRON HCL 4MG/2ML INJ IV PRN (12:46)
[2020-01-07 16:00] VITALS: BP 127/70
[2020-01-07 20:00] VITALS: BP 117/54
[2020-01-07] MEDS ORDERED: ZOLPIDEM TARTRATE 5MG TABLET PO PRN (21:00)
[2020-01-07] MEDS: DIPHENHYDRAMINE 50MG CAPSULE PO PRN (22:09)
[2020-01-07] MEDS: HYDROCODONE/ACETAMINOPHEN 10/325MG TABLET PO PRN (22:09)
[2020-01-08] VITALS: BP 117/59
[2020-01-08 04:00] VITALS: BP 125/68
[2020-01-08] MEDS: HYDROCODONE/ACETAMINOPHEN 10/325MG TABLET PO PRN ×2 (07:00→13:27)
[2020-01-08 07:52] VITALS: BP 126/70
[2020-01-08] MEDS: AMLODIPINE 10MG TABLET PO SCH (08:26)
[2020-01-08] MEDS: MAGNESIUM/ALUMINUM HYDROXIDE/SIMETHICONE 30ML UDC PO PRN ×2 (10:48→16:54)
[2020-01-08 11:29] LABS: BASOPHILS % 0.4 % (0.0-2.0); EOSINOPHILS % 7.9 % (0.0-5.0); HEMATOCRIT. 26.3 % (42.0-52.0); HEMOGLOBIN. 8.7 g/dL (14.0-18.0); LYMPHOCYTES % 28.9 % (20.0-50.0); MEAN CORPUSCULAR HEMOGLOBIN 30.2 pg (28.0-32.0); MEAN CORPUSCULAR VOLUME 91.2 fL (80.0-94.0); MEAN PLATELET VOLUME 8.2 fl (7.4-10.4); MONOCYTES % 11.8 % (2.0-8.0); PLATELET 233 x1000/uL (130-400); RED BLOOD CELL COUNT 2.89 mill/uL (4.7-6.1); RED CELL DISTRIBUTION WIDTH 15.1 % (11.6-14.6)
[2020-01-08 12:00] VITALS: BP 129/74
[2020-01-08] MEDS ORDERED: SODIUM POLYSTYRENE SULFONATE 15 G/60 ML BOT PO NR (13:42)
[2020-01-08 16:00] VITALS: BP 154/82
[2020-01-08 20:00] VITALS: BP 146/71
[2020-01-08] MEDS: DIPHENHYDRAMINE 50MG CAPSULE PO PRN (21:26)
[2020-01-09] VITALS: BP 127/76
[2020-01-09] MEDS: HYDROCODONE/ACETAMINOPHEN 10/325MG TABLET PO PRN (00:02)
[2020-01-09 04:00] VITALS: BP 121/66
[2020-01-09 06:20] LABS: EOSINOPHILS % 7.7 % (0.0-5.0); HEMATOCRIT. 25.8 % (42.0-52.0); HEMOGLOBIN. 8.5 g/dL (14.0-18.0); LYMPHOCYTES % 22.1 % (20.0-50.0); MEAN CORPUSCULAR HEMOGLOBIN 29.8 pg (28.0-32.0); MEAN CORPUSCULAR VOLUME 90.3 fL (80.0-94.0); MEAN PLATELET VOLUME 8.2 fl (7.4-10.4); MONOCYTES % 9.1 % (2.0-8.0); NEUTROPHILS % 60.1 % (40.0-76.0); PLATELET 224 x1000/uL (130-400); RED BLOOD CELL COUNT 2.86 mill/uL (4.7-6.1); RED CELL DISTRIBUTION WIDTH 15.5 % (11.6-14.6)
[2020-01-09 08:00] VITALS: BP 141/91
[2020-01-09] MEDS: AMLODIPINE 10MG TABLET PO SCH (09:00)
[2020-01-09] MEDS ORDERED: HEPARIN SODIUM 1,000 UNIT/1ML VIAL IV SCH (10:00)
[2020-01-09 12:00] VITALS: BP 141/70
[2020-01-09] MEDS ORDERED: PANTOPRAZOLE 40MG DR TABLET PO SCH (13:00)
[2020-01-09 15:43] VITALS: BP 141/70
[2020-01-09 20:00] VITALS: BP 124/68
== END 2020-01-09 21:18 | disposition home or self-care (01) | DRG 466 ==
LOC: ER 10:33 → 5WST 12:36 → ENRESERV 14:09
PROVIDERS: ADMIT Internal Medicine; ATTEND Internal Medicine
PROC: 5A1D70Z Performance of Urinary Filtration, Intermittent, Less than 6 Hours Per Day (ICD-10-PCS; principal; 2020-01-05)
PROC: 5A1D70Z Performance of Urinary Filtration, Intermittent, Less than 6 Hours Per Day (ICD-10-PCS; 2020-01-06)
PROC: 5A1D70Z Performance of Urinary Filtration, Intermittent, Less than 6 Hours Per Day (ICD-10-PCS; 2020-01-09)
DX: T82.898A Other specified complication of vascular prosthetic devices, implants and grafts, initial encounter (principal); S37.012A Minor contusion of left kidney, initial encounter; I12.0 Hypertensive chronic kidney disease with stage 5 chronic kidney disease or end stage renal disease; E11.22 Type 2 diabetes mellitus with diabetic chronic kidney disease; E11.51 Type 2 diabetes mellitus with diabetic peripheral angiopathy without gangrene; E44.0 Moderate protein-calorie malnutrition; N18.6 End stage renal disease; H54.8 Legal blindness, as defined in USA; E66.9 Obesity, unspecified; X58.XXXA Exposure to other specified factors, initial encounter; Y83.8 Other surgical procedures as the cause of abnormal reaction of the patient, or of later complication, without mention of misadventure at the time of the procedure; D64.9 Anemia, unspecified; Z99.2 Dependence on renal dialysis; Z68.41 Body mass index [BMI] 40.0-44.9, adult; Z79.891 Long term (current) use of opiate analgesic; Z79.4 Long term (current) use of insulin; Z79.899 Other long term (current) drug therapy; Z68.42 Body mass index [BMI] 45.0-49.9, adult; Y93.89 Activity, other specified; Y92.89 Other specified places as the place of occurrence of the external cause; Y99.8 Other external cause status; Z89.511 Acquired absence of right leg below knee; Z89.512 Acquired absence of left leg below knee; Z82.49 Family history of ischemic heart disease and other diseases of the circulatory system
CPT/HCPCS: 36415; 71045; 74018; 80048; 80053; 82962; 85025; 93005; 99291; J0885; J1644; J2405; J2997; Q0163

== ENCOUNTER 2020-05-21 11:14 | Emergency (ER) | payer MEDICAID ==
[~2020-05-21] VITALS: Ht 195.6 cm; Wt 150.0 kg
[~2020-05-21 11:14] MED LIST changes: -GABA-531 PO; +GABA-532 PO
[2020-05-21] MEDS ORDERED: ACETAMINOPHEN WITH CODEINE 300/30MG TABLET PO ONE (11:45)
[2020-05-21] MEDS ORDERED: TOPUD MT (13:12)
[2020-05-21 14:04] VITALS: BP 116/55
== END 2020-05-21 15:28 | disposition home or self-care (01) ==
LOC: ER 11:14
DX: D17.1 Benign lipomatous neoplasm of skin and subcutaneous tissue of trunk (principal); R00.0 Tachycardia, unspecified; I12.0 Hypertensive chronic kidney disease with stage 5 chronic kidney disease or end stage renal disease; E13.22 Other specified diabetes mellitus with diabetic chronic kidney disease; N18.6 End stage renal disease; Z99.2 Dependence on renal dialysis
CPT/HCPCS: 72220; 93005; 99283

== ENCOUNTER 2020-06-20 08:22 | Inpatient (IN) | payer MEDICAID ==
[~2020-06-20] VITALS: Ht 185.4 cm; Wt 154.7 kg
[~2020-06-20 08:22] MED LIST changes: +TOPUD MT
[2020-06-20] MEDS ORDERED: PIPERACILLIN/TAZ 3.375G PREMIX 50 ML IV ONE (09:00)
[2020-06-20] MEDS ORDERED: SODIUM CHLORIDE 0.9% 1000ML BAG (SEPSIS BOLUS) IV ONE (09:00)
[2020-06-20] MEDS ORDERED: VANCOMYCIN 1 G PREMIX 200 ML IV ONE (09:00)
[2020-06-20 09:30] LABS: BASOPHILS % 0.3 % (0.0-2.0); EOSINOPHILS % 5.8 % (0.0-5.0); HEMATOCRIT. 34.4 % (42.0-52.0); HEMOGLOBIN. 11.4 g/dL (14.0-18.0); LYMPHOCYTES % 20.2 % (20.0-50.0); MEAN CORPUSCULAR HEMOGLOBIN 29.1 pg (28.0-32.0); MEAN CORPUSCULAR VOLUME 87.6 fL (80.0-94.0); MEAN PLATELET VOLUME 8.3 fl (7.4-10.4); MONOCYTES % 8.6 % (2.0-8.0); NEUTROPHILS % 65.1 % (40.0-76.0); PLATELET 273 x1000/uL (130-400); RED BLOOD CELL COUNT 3.93 mill/uL (4.7-6.1); RED CELL DISTRIBUTION WIDTH 18.5 % (11.6-14.6)
[2020-06-20 10:03] LABS: CHLORIDE 100 mEq/L (98-107)
[2020-06-20 10:08] LABS: INR 1.1; PROTHROMBIN TIME 12.2 sec (9.6-11.0)
[2020-06-20] MEDS ORDERED: DOCUSATE SODIUM 100MG CAPSULE PO PRN (13:15)
[2020-06-20] MEDS ORDERED: ACETAMINOPHEN 325MG TABLET PO PRN ×2 (13:15)
[2020-06-20] MEDS ORDERED: HYDROCODONE/ACETAMINOPHEN 5/325MG TABLET PO PRN (13:15)
[2020-06-20] MEDS ORDERED: CLONIDINE 0.1MG TABLET PO PRN (13:15)
[2020-06-20] MEDS ORDERED: ONDANSETRON HCL 4MG/2ML INJ IV PRN (13:15)
[2020-06-20] MEDS ORDERED: LORAZEPAM 0.5MG TABLET PO PRN (13:15)
[2020-06-20] MEDS ORDERED: IPRATROPIUM/ALBUTEROL 0.5-3(2.5)MG/3ML NEB HHN PRN (13:15)
[2020-06-20 14:35] VITALS: BP 117/81
[2020-06-20 16:23] VITALS: BP 121/55
[2020-06-20] MEDS: MIDODRINE HCL 5MG TABLET PO SCH (16:28)
[2020-06-20] MEDS ORDERED: HEPARIN SODIUM 1,000 UNIT/1ML VIAL IV NR (17:15)
[2020-06-20] MEDS ORDERED: DEXTROSE 50% WATER 50ML SYRINGE IV PRN (17:30)
[2020-06-20] MEDS: INSULIN LISPRO 100 UNITS/ML SUBCUT SCH ×2 (17:40→21:00)
[2020-06-20] MEDS: POLYVINYL ALCOHOL OPHTH DROPS 15ML BOTHEYE SCH ×2 (17:56→23:14)
[2020-06-20] MEDS: NEO/POLYMYX B SULF/DEXAMETH 0.1% OPHTH SUSP 5ML BOTHEYE SCH ×2 (17:56→21:01)
[2020-06-20] MEDS ORDERED: NEOMYCIN/POLYMYXN B/GRAMICIDIN OPHTH DROPS 10ML BOTHEYE SCH (18:00)
[2020-06-20 20:35] VITALS: BP 122/66
[2020-06-20] MEDS: BLOOD SUGAR DIAGNOSTIC STRIP TEST SCH (21:01)
[2020-06-21 00:01] VITALS: BP 126/68
[2020-06-21 04:00] VITALS: BP 111/60
[2020-06-21] MEDS: POLYVINYL ALCOHOL OPHTH DROPS 15ML BOTHEYE SCH ×3 (05:55→18:03)
[2020-06-21] MEDS: BLOOD SUGAR DIAGNOSTIC STRIP TEST SCH ×4 (06:12→20:21)
[2020-06-21] MEDS: INSULIN LISPRO 100 UNITS/ML SUBCUT SCH ×4 (06:57→20:21)
[2020-06-21 08:00] VITALS: BP 108/61
[2020-06-21] MEDS: NEO/POLYMYX B SULF/DEXAMETH 0.1% OPHTH SUSP 5ML BOTHEYE SCH ×4 (09:00→20:12)
[2020-06-21 09:28] LABS: BASOPHILS % 0.4 % (0.0-2.0); EOSINOPHILS % 8.3 % (0.0-5.0); HEMATOCRIT. 31.9 % (42.0-52.0); HEMOGLOBIN. 10.5 g/dL (14.0-18.0); LYMPHOCYTES % 29.5 % (20.0-50.0); MEAN CORPUSCULAR HEMOGLOBIN 28.9 pg (28.0-32.0); MEAN CORPUSCULAR VOLUME 87.9 fL (80.0-94.0); MEAN PLATELET VOLUME 8.5 fl (7.4-10.4); MONOCYTES % 8.5 % (2.0-8.0); NEUTROPHILS % 53.3 % (40.0-76.0); PLATELET 223 x1000/uL (130-400); RED BLOOD CELL COUNT 3.63 mill/uL (4.7-6.1); RED CELL DISTRIBUTION WIDTH 18.1 % (11.6-14.6)
[2020-06-21] MEDS: MIDODRINE HCL 5MG TABLET PO SCH ×3 (09:29→18:04)
[2020-06-21 12:00] VITALS: BP 113/58
[2020-06-21 20:00] VITALS: BP 129/78
[2020-06-22] VITALS (8 sets, daily range): BP systolic 127–144; BP diastolic 47–79
[2020-06-22] MEDS: POLYVINYL ALCOHOL OPHTH DROPS 15ML BOTHEYE SCH ×5 (00:35→23:28)
[2020-06-22] MEDS: BLOOD SUGAR DIAGNOSTIC STRIP TEST SCH ×4 (07:13→20:56)
[2020-06-22] MEDS: INSULIN LISPRO 100 UNITS/ML SUBCUT SCH ×4 (07:14→20:56)
[2020-06-22] MEDS: NEO/POLYMYX B SULF/DEXAMETH 0.1% OPHTH SUSP 5ML BOTHEYE SCH ×4 (08:14→20:56)
[2020-06-22] MEDS: MIDODRINE HCL 5MG TABLET PO SCH ×3 (08:14→17:06)
[2020-06-22 08:17] LABS: BASOPHILS % 0.8 % (0.0-2.0); EOSINOPHILS % 8.6 % (0.0-5.0); HEMATOCRIT. 32.7 % (42.0-52.0); HEMOGLOBIN. 10.6 g/dL (14.0-18.0); LYMPHOCYTES % 29.5 % (20.0-50.0); MEAN CORPUSCULAR HEMOGLOBIN 28.6 pg (28.0-32.0); MEAN CORPUSCULAR VOLUME 87.9 fL (80.0-94.0); MEAN PLATELET VOLUME 8.1 fl (7.4-10.4); MONOCYTES % 9.5 % (2.0-8.0); NEUTROPHILS % 51.6 % (40.0-76.0); PLATELET 234 x1000/uL (130-400); RED BLOOD CELL COUNT 3.72 mill/uL (4.7-6.1); RED CELL DISTRIBUTION WIDTH 18.5 % (11.6-14.6)
[2020-06-22] MEDS ORDERED: MIDO5TAB4 PO (12:43)
[2020-06-22] MEDS ORDERED: ALTEPLASE 2MG/VIAL ITC NR (18:00)
[2020-06-23] VITALS: BP 132/56
[2020-06-23 04:00] VITALS: BP 128/77
[2020-06-23] MEDS: POLYVINYL ALCOHOL OPHTH DROPS 15ML BOTHEYE SCH (06:00)
[2020-06-23] MEDS: BLOOD SUGAR DIAGNOSTIC STRIP TEST SCH (06:34)
[2020-06-23] MEDS: INSULIN LISPRO 100 UNITS/ML SUBCUT SCH (06:35)
[2020-06-23 08:00] VITALS: BP 139/76
[2020-06-23] MEDS: NEO/POLYMYX B SULF/DEXAMETH 0.1% OPHTH SUSP 5ML BOTHEYE SCH (08:25)
[2020-06-23] MEDS: MIDODRINE HCL 5MG TABLET PO SCH (08:25)
== END 2020-06-23 09:10 | disposition home or self-care (01) | DRG 720 ==
LOC: ER 08:45 → EDBEDREQTM 11:03 → EDBEDREQ 11:03 → EDBEDREQSVC 11:03 → 8WST 11:47 → EDBEDREQTM 11:52 → EDBEDREQ 11:52 → ENRESERV 13:14
PROVIDERS: ADMIT Internal Medicine; ATTEND Internal Medicine
PROC: 5A1D70Z Performance of Urinary Filtration, Intermittent, Less than 6 Hours Per Day (ICD-10-PCS; principal; 2020-06-20)
PROC: 5A1D70Z Performance of Urinary Filtration, Intermittent, Less than 6 Hours Per Day (ICD-10-PCS; 2020-06-22)
DX: A41.9 Sepsis, unspecified organism (principal); I13.2 Hypertensive heart and chronic kidney disease with heart failure and with stage 5 chronic kidney disease, or end stage renal disease; I95.9 Hypotension, unspecified; E11.51 Type 2 diabetes mellitus with diabetic peripheral angiopathy without gangrene; E11.22 Type 2 diabetes mellitus with diabetic chronic kidney disease; Z68.42 Body mass index [BMI] 45.0-49.9, adult; I50.9 Heart failure, unspecified; N18.6 End stage renal disease; G90.9 Disorder of the autonomic nervous system, unspecified; S37.012A Minor contusion of left kidney, initial encounter; H54.8 Legal blindness, as defined in USA; I44.0 Atrioventricular block, first degree; D64.9 Anemia, unspecified; E66.9 Obesity, unspecified; X58.XXXA Exposure to other specified factors, initial encounter; H10.89 Other conjunctivitis; R00.1 Bradycardia, unspecified; D72.821 Monocytosis (symptomatic); Z99.2 Dependence on renal dialysis; Z89.511 Acquired absence of right leg below knee; Z89.512 Acquired absence of left leg below knee; Z79.1 Long term (current) use of non-steroidal anti-inflammatories (NSAID); Z79.899 Other long term (current) drug therapy; Z79.891 Long term (current) use of opiate analgesic; Y93.89 Activity, other specified; Y92.89 Other specified places as the place of occurrence of the external cause; Y99.8 Other external cause status
CPT/HCPCS: 36415; 71045; 80048; 80053; 82962; 83036; 83605; 84145; 84484; 85025; 93005; 93306; 99285; J1644; J2543; J2997; J3370; J7030

== ENCOUNTER 2020-10-04 14:02 | Inpatient (IN) | payer MEDICAID ==
[~2020-10-04] VITALS: Ht 180.3 cm; Wt 137.0 kg
[~2020-10-04 14:02] MED LIST changes: +BRIM5DRO6 EACHEYE; +DORZ10DR12 EACHEYE; -DORZ10DR12 OP; -KETO5DRO37 RIGHTEYE; +LATA2.5D14 EACHEYE; +OMEP40CA12 PO; +REN800 MT
[2020-10-04 15:17] LABS: CHLORIDE 99 mEq/L (98-107)
[2020-10-04 15:18] LABS: BASOPHILS % 0.7 % (0.0-2.0); EOSINOPHILS % 10.1 % (0.0-5.0); LYMPHOCYTES % 29.2 % (20.0-50.0); MEAN CORPUSCULAR HEMOGLOBIN 31.3 pg (28.0-32.0); MEAN CORPUSCULAR VOLUME 90.8 fL (80.0-94.0); MEAN PLATELET VOLUME 8.9 fl (7.4-10.4); MONOCYTES % 8.4 % (2.0-8.0); NEUTROPHILS % 51.6 % (40.0-76.0); PLATELET 203 x1000/uL (130-400); RED CELL DISTRIBUTION WIDTH 16.1 % (11.6-14.6)
[2020-10-04 15:21] LABS: ETHANOL BLOOD < 10 mg/dL
[2020-10-04 15:23] LABS: INR 1.2; PARTIAL THROMBOPLASTIN TIME 26.4 sec (23.4-31.0); PROTHROMBIN TIME 12.4 sec (9.6-11.0)
[2020-10-04] MEDS ORDERED: IPRATROPIUM/ALBUTEROL 0.5-3(2.5)MG/3ML NEB HHN PRN (18:30)
[2020-10-04] MEDS ORDERED: HYDROCODONE/ACETAMINOPHEN 5/325MG TABLET PO PRN (18:30)
[2020-10-04] MEDS ORDERED: CLONIDINE 0.1MG TABLET PO PRN (18:30)
[2020-10-04] MEDS ORDERED: ONDANSETRON HCL 4MG/2ML INJ IV PRN (18:30)
[2020-10-04] MEDS ORDERED: ACETAMINOPHEN 325MG TABLET PO PRN ×2 (18:30)
[2020-10-04] MEDS ORDERED: DOCUSATE SODIUM 100MG CAPSULE PO PRN (18:30)
[2020-10-04] MEDS ORDERED: LORAZEPAM 0.5MG TABLET PO PRN (18:30)
[2020-10-04 18:44] LABS: AMYLASE 144 IU/L (25-115)
[2020-10-04] MEDS ORDERED: NALOXONE HCL 0.4MG/ML VIAL IV PRN (18:45)
[2020-10-04] MEDS: LATANOPROST 0.005% OPHTH DROPS 2.5ML EACHEYE SCH (23:03)
[2020-10-04] MEDS: DORZOLAM/TIMOLOL 2.23/0.68% OPHTH DROPS 10ML EACHEYE SCH (23:03)
[2020-10-04] MEDS: INSULIN GLARGINE UD 100 UNITS/ML SYR SUBCUT SCH (23:04)
[2020-10-05] VITALS (7 sets, daily range): BP systolic 99–157; BP diastolic 61–82
[2020-10-05] MEDS: BRIMONIDINE 0.2% OPHTH DROPS 5ML BOTHEYE SCH ×4 (00:35→21:27)
[2020-10-05] MEDS ORDERED: DEXTROSE 50% WATER 50ML SYRINGE IV PRN ×2 (04:30)
[2020-10-05] MEDS: BLOOD SUGAR DIAGNOSTIC STRIP TEST SCH ×4 (05:57→21:23)
[2020-10-05] MEDS: INSULIN LISPRO 100 UNITS/ML SUBCUT SCH ×4 (05:58→21:00)
[2020-10-05] MEDS: LEVOTHYROXINE SODIUM 50MCG TABLET PO SCH (06:11)
[2020-10-05] MEDS: SEVELAMER CARBONATE 800 MG TABLET PO SCH ×3 (08:56→18:07)
[2020-10-05] MEDS: FAMOTIDINE 20MG TABLET PO SCH (08:56)
[2020-10-05] MEDS: FOLIC ACID/VITAMIN B COMP W-C TABLET PO SCH (08:56)
[2020-10-05] MEDS: DORZOLAM/TIMOLOL 2.23/0.68% OPHTH DROPS 10ML EACHEYE SCH ×2 (08:56→16:58)
[2020-10-05] MEDS ORDERED: ALTEPLASE 2MG/VIAL ITC NR ×2 (10:00→12:00)
[2020-10-05] MEDS: INSULIN GLARGINE UD 100 UNITS/ML SYR SUBCUT SCH (21:27)
[2020-10-05] MEDS: LATANOPROST 0.005% OPHTH DROPS 2.5ML EACHEYE SCH (21:33)
[2020-10-06] VITALS (7 sets, daily range): BP systolic 126–155; BP diastolic 67–87
[2020-10-06 00:55] LABS: BASOPHILS % 0.5 % (0.0-2.0); EOSINOPHILS % 7.6 % (0.0-5.0); HEMOGLOBIN. 9.7 g/dL (14.0-18.0); LYMPHOCYTES % 29.3 % (20.0-50.0); MEAN CORPUSCULAR HEMOGLOBIN 30.7 pg (28.0-32.0); MEAN CORPUSCULAR VOLUME 92.1 fL (80.0-94.0); MONOCYTES % 7.4 % (2.0-8.0); NEUTROPHILS % 55.2 % (40.0-76.0); PLATELET 169 x1000/uL (130-400); RED BLOOD CELL COUNT 3.15 mill/uL (4.7-6.1)
[2020-10-06] MEDS ORDERED: HEPARIN SODIUM 1,000 UNIT/1ML VIAL IV NR (01:00)
[2020-10-06] MEDS ORDERED: HEPARIN 5000 UNITS/ML VIAL IV NR (01:00)
[2020-10-06 01:35] LABS: HEPATITIS B SURFACE ANTIGEN NEGATIVE
[2020-10-06 02:05] LABS: HEPATITIS A AB IGM NEGATIVE (NEGATIVE)
[2020-10-06] MEDS: BRIMONIDINE 0.2% OPHTH DROPS 5ML BOTHEYE SCH ×3 (05:03→21:09)
[2020-10-06] MEDS: LEVOTHYROXINE SODIUM 50MCG TABLET PO SCH (05:09)
[2020-10-06] MEDS: BLOOD SUGAR DIAGNOSTIC STRIP TEST SCH ×4 (06:00→21:01)
[2020-10-06] MEDS: INSULIN LISPRO 100 UNITS/ML SUBCUT SCH ×4 (06:00→21:00)
[2020-10-06] MEDS ORDERED: POTASSIUM CHLORIDE 20MEQ/PACKET PO SCH (09:45)
[2020-10-06] MEDS: FAMOTIDINE 20MG TABLET PO SCH (10:39)
[2020-10-06] MEDS: FOLIC ACID/VITAMIN B COMP W-C TABLET PO SCH (10:39)
[2020-10-06] MEDS: SEVELAMER CARBONATE 800 MG TABLET PO SCH ×3 (10:39→18:32)
[2020-10-06] MEDS: DORZOLAM/TIMOLOL 2.23/0.68% OPHTH DROPS 10ML EACHEYE SCH ×2 (10:40→18:32)
[2020-10-06] MEDS ORDERED: MORPHINE SULFATE 2 MG/ML CPJ (NOT FOR IM USE) IV SCH (13:30)
[2020-10-06 16:55] LABS: BASOPHILS % 0.7 % (0.0-2.0); EOSINOPHILS % 7.6 % (0.0-5.0); HEMATOCRIT. 31.4 % (42.0-52.0); HEMOGLOBIN. 10.2 g/dL (14.0-18.0); LYMPHOCYTES % 32.5 % (20.0-50.0); MEAN CORPUSCULAR HEMOGLOBIN 29.3 pg (28.0-32.0); MEAN CORPUSCULAR VOLUME 90.5 fL (80.0-94.0); MEAN PLATELET VOLUME 8.8 fl (7.4-10.4); MONOCYTES % 8.8 % (2.0-8.0); NEUTROPHILS % 50.4 % (40.0-76.0); PLATELET 166 x1000/uL (130-400); RED BLOOD CELL COUNT 3.47 mill/uL (4.7-6.1); RED CELL DISTRIBUTION WIDTH 16.4 % (11.6-14.6)
[2020-10-06] MEDS: INSULIN GLARGINE UD 100 UNITS/ML SYR SUBCUT SCH (21:01)
[2020-10-06] MEDS: LATANOPROST 0.005% OPHTH DROPS 2.5ML EACHEYE SCH (21:09)
== END 2020-10-06 23:23 | disposition home or self-care (01) | DRG 466 ==
LOC: ER 14:18 → MICUSO 18:06 → EDBEDREQTM 18:12 → EDBEDREQ 18:12 → 8WST 23:24
PROVIDERS: ADMIT Internal Medicine; ATTEND Internal Medicine
PROC: 5A1D70Z Performance of Urinary Filtration, Intermittent, Less than 6 Hours Per Day (ICD-10-PCS; principal; 2020-10-05)
DX: T82.41XA Breakdown (mechanical) of vascular dialysis catheter, initial encounter (principal); I12.0 Hypertensive chronic kidney disease with stage 5 chronic kidney disease or end stage renal disease; E11.22 Type 2 diabetes mellitus with diabetic chronic kidney disease; D72.10 Eosinophilia, unspecified; N18.6 End stage renal disease; D64.9 Anemia, unspecified; E66.9 Obesity, unspecified; R00.1 Bradycardia, unspecified; N28.89 Other specified disorders of kidney and ureter; I25.10 Atherosclerotic heart disease of native coronary artery without angina pectoris; K76.9 Liver disease, unspecified; K80.20 Calculus of gallbladder without cholecystitis without obstruction; R16.0 Hepatomegaly, not elsewhere classified; I44.0 Atrioventricular block, first degree; Y83.8 Other surgical procedures as the cause of abnormal reaction of the patient, or of later complication, without mention of misadventure at the time of the procedure; Z99.2 Dependence on renal dialysis; Z68.41 Body mass index [BMI] 40.0-44.9, adult; Z79.890 Hormone replacement therapy; Z79.4 Long term (current) use of insulin; Z79.899 Other long term (current) drug therapy; Z89.511 Acquired absence of right leg below knee; Z89.512 Acquired absence of left leg below knee; Z82.49 Family history of ischemic heart disease and other diseases of the circulatory system; Y92.89 Other specified places as the place of occurrence of the external cause
CPT/HCPCS: 36415; 71045; 76700; 80048; 80053; 80320; 82150; 82962; 83036; 83880; 84484; 85025; 86705; 86709; 86803; 87340; 93005; 99285; J1644; J1815; J2270; J2997; G0480

== ENCOUNTER 2020-10-22 04:39 | Inpatient (IN) | payer MEDICAID ==
[~2020-10-22] VITALS: Ht 175.3 cm; Wt 146.5 kg
[~2020-10-22 04:39] MED LIST changes: -HYDR-4009 MT
[2020-10-22 06:50] LABS: BASOPHILS % 0.5 % (0.0-2.0); EOSINOPHILS % 8.4 % (0.0-5.0); HEMATOCRIT. 34.6 % (42.0-52.0); HEMOGLOBIN. 11.1 g/dL (14.0-18.0); LYMPHOCYTES % 29.1 % (20.0-50.0); MEAN CORPUSCULAR HEMOGLOBIN 29.9 pg (28.0-32.0); MEAN CORPUSCULAR VOLUME 93.1 fL (80.0-94.0); MONOCYTES % 10.7 % (2.0-8.0); NEUTROPHILS % 51.3 % (40.0-76.0); PLATELET 220 x1000/uL (130-400); RED BLOOD CELL COUNT 3.71 mill/uL (4.7-6.1); RED CELL DISTRIBUTION WIDTH 17.6 % (11.6-14.6)
[2020-10-22 07:12] LABS: CHLORIDE 99 mEq/L (98-107)
[2020-10-22] MEDS ORDERED: FUROSEMIDE 100MG/10ML VIAL IV STA (07:20)
[2020-10-22] MEDS ORDERED: CALCIUM CHLORIDE 1GM/10ML SYR IV ONE (07:30)
[2020-10-22] MEDS ORDERED: DEXTROSE 50% WATER 50ML SYRINGE IV ONE (07:30)
[2020-10-22] MEDS ORDERED: INSULIN REGULAR (HUMULIN R) 300UNITS/3ML VIAL IV ONE (07:30)
[2020-10-22] MEDS ORDERED: SODIUM BICARBONATE 8.4% 1 MEQ/ML 50ML SYR IV ONE (07:30)
[2020-10-22] MEDS ORDERED: ALBUTEROL (0.083%) 2.5MG/3ML NEB HHN ONE (07:30)
[2020-10-22] MEDS ORDERED: CEFAZOLIN 1000MG PREMIX 50 ML IV SCH (08:45)
[2020-10-22] MEDS ORDERED: DIPHENHYDRAMINE 50MG/ML VIAL IV PRN (09:45)
[2020-10-22] MEDS ORDERED: ONDANSETRON HCL 4MG/2ML INJ IV PRN (09:45)
[2020-10-22] MEDS ORDERED: ACETAMINOPHEN 325MG TABLET PO PRN (09:45)
[2020-10-22] MEDS ORDERED: CLONIDINE 0.1MG TABLET PO PRN (09:45)
[2020-10-22] MEDS ORDERED: IPRATROPIUM/ALBUTEROL 0.5-3(2.5)MG/3ML NEB HHN PRN (09:45)
[2020-10-22 13:05] LABS: INR 1.1; PARTIAL THROMBOPLASTIN TIME 27.5 sec (23.4-31.0); PROTHROMBIN TIME 11.9 sec (9.6-11.0)
[2020-10-22] MEDS ORDERED: LIDOCAINE HCL 1% 20ML VIAL (Pyxis) INJ ONE (13:05)
[2020-10-22] MEDS ORDERED: CEFAZOLIN 1000MG PREMIX 50 ML IV ONE (13:05)
[2020-10-22] MEDS ORDERED: SODIUM BICARBONATE 4% (2.4MEQ) 5ML VIAL IV ONE (13:05)
[2020-10-22] MEDS ORDERED: FENTANYL CITRATE/PF 50MCG/ML 2ML VIAL ONE (13:05)
[2020-10-22 13:50] VITALS: BP 161/68
[2020-10-22] MEDS ORDERED: IOHEXOL-300 50 ML BOTTLE IV ONE (14:05)
[2020-10-22 14:10] VITALS: BP 172/87
[2020-10-22 14:25] VITALS: BP 157/79
[2020-10-22 14:38] VITALS: BP 161/68
[2020-10-22 15:39] LABS: INR 1.1
[2020-10-22] MEDS ORDERED: DEXTROSE 50% WATER 50ML SYRINGE IV PRN (16:30)
[2020-10-22] MEDS: MORPHINE SULFATE 2 MG/ML CPJ (NOT FOR IM USE) IV PRN (17:39)
[2020-10-22] MEDS: INSULIN LISPRO 100 UNITS/ML SUBCUT SCH ×2 (18:20→21:00)
[2020-10-22] MEDS: ENOXAPARIN 150MG/ML SYR SUBCUT SCH (18:29)
[2020-10-22] MEDS: BLOOD SUGAR DIAGNOSTIC STRIP TEST SCH ×2 (18:30→21:00)
[2020-10-22 20:10] LABS: HEPATITIS B SURFACE ANTIGEN NEGATIVE
[2020-10-22 20:39] LABS: HEPATITIS A AB IGM NEGATIVE (NEGATIVE)
[2020-10-23] VITALS (17 sets, daily range): BP systolic 113–151; BP diastolic 56–78
[2020-10-23] MEDS ORDERED: ALTEPLASE 2MG/VIAL ITC NR (01:45)
[2020-10-23 05:40] LABS: BASOPHILS % 0.9 % (0.0-2.0); EOSINOPHILS % 6.3 % (0.0-5.0); HEMATOCRIT. 30.7 % (42.0-52.0); HEMOGLOBIN. 10.3 g/dL (14.0-18.0); MEAN CORPUSCULAR HEMOGLOBIN 30.6 pg (28.0-32.0); MEAN CORPUSCULAR VOLUME 91.3 fL (80.0-94.0); MEAN PLATELET VOLUME 8.9 fl (7.4-10.4); NEUTROPHILS % 59.8 % (40.0-76.0); PLATELET 227 x1000/uL (130-400); RED BLOOD CELL COUNT 3.36 mill/uL (4.7-6.1); RED CELL DISTRIBUTION WIDTH 17.6 % (11.6-14.6)
[2020-10-23 05:44] LABS: CHLORIDE 101 mEq/L (98-107)
[2020-10-23 05:45] LABS: INR 1.2; PROTHROMBIN TIME 12.4 sec (9.6-11.0)
[2020-10-23 05:54] LABS: LDL CHOLESTEROL 66 mg/dL (5-100)
[2020-10-23 05:56] LABS: HDL CHOLESTEROL 34 mg/dL (40-59)
[2020-10-23] MEDS: MORPHINE SULFATE 2 MG/ML CPJ (NOT FOR IM USE) IV PRN (06:16)
[2020-10-23] MEDS: INSULIN LISPRO 100 UNITS/ML SUBCUT SCH ×4 (07:00→21:00)
[2020-10-23] MEDS: BLOOD SUGAR DIAGNOSTIC STRIP TEST SCH ×4 (07:02→21:27)
[2020-10-23] MEDS ORDERED: CEFAZOLIN 1000MG PREMIX 50 ML IV NR (09:30)
[2020-10-23] MEDS ORDERED: LIDOCAINE HCL 1% 20ML VIAL (Pyxis) INJ ONE (09:41)
[2020-10-23] MEDS ORDERED: NALOXONE HCL 0.4MG/ML VIAL IV PRN (09:45)
[2020-10-23] MEDS ORDERED: CEFAZOLIN 1000MG PREMIX 50 ML IV ONE (09:49)
[2020-10-23] MEDS ORDERED: FENTANYL CITRATE/PF 50MCG/ML 2ML VIAL ONE (09:49)
[2020-10-23] MEDS ORDERED: IOHEXOL-300 50 ML BOTTLE IV ONE (09:52)
[2020-10-23] MEDS ORDERED: FENTANYL CITRATE/PF 50MCG/ML 2ML VIAL IV ONE (10:30)
[2020-10-23] MEDS: ENOXAPARIN 150MG/ML SYR SUBCUT SCH (13:38)
[2020-10-23] MEDS ORDERED: HEPARIN SODIUM 1,000 UNIT/1ML VIAL IV NR ×2 (16:15→17:45)
[2020-10-24] VITALS (8 sets, daily range): BP systolic 118–145; BP diastolic 41–73
[2020-10-24] MEDS: MORPHINE SULFATE 2 MG/ML CPJ (NOT FOR IM USE) IV PRN (00:36)
[2020-10-24] MEDS: BLOOD SUGAR DIAGNOSTIC STRIP TEST SCH ×3 (06:17→17:10)
[2020-10-24] MEDS: INSULIN LISPRO 100 UNITS/ML SUBCUT SCH ×3 (06:18→17:40)
[2020-10-24] MEDS: ENOXAPARIN 150MG/ML SYR SUBCUT SCH (11:34)
[2020-10-24 15:02] LABS: BASOPHILS % 0.6 % (0.0-2.0); EOSINOPHILS % 10.4 % (0.0-5.0); HEMATOCRIT. 30.2 % (42.0-52.0); HEMOGLOBIN. 9.9 g/dL (14.0-18.0); LYMPHOCYTES % 29.2 % (20.0-50.0); MEAN CORPUSCULAR VOLUME 91.9 fL (80.0-94.0); MEAN PLATELET VOLUME 8.5 fl (7.4-10.4); MONOCYTES % 9.2 % (2.0-8.0); NEUTROPHILS % 50.6 % (40.0-76.0); PLATELET 186 x1000/uL (130-400); RED BLOOD CELL COUNT 3.28 mill/uL (4.7-6.1); RED CELL DISTRIBUTION WIDTH 17.6 % (11.6-14.6)
[2020-10-24] MEDS ORDERED: APIX5TAB MT ×2 (17:04)
== END 2020-10-24 23:45 | disposition home or self-care (01) | DRG 206 ==
LOC: ER 04:39 → MICUSO 08:58 → EDBEDREQ 09:01 → EDBEDREQTM 09:01 → 6WST 10-23 07:24 → MICUSO 10-23 08:01 → 8WST 10-23 08:25 → MICUSO 10-23 09:25 → 8WST 10-23 09:29
PROVIDERS: ADMIT Internal Medicine; ATTEND Internal Medicine
PROC: 0J2WXYZ Change Other Device in Lower Extremity Subcutaneous Tissue and Fascia, External Approach (ICD-10-PCS; principal; 2020-10-22)
PROC: 06H033Z Insertion of Infusion Device into Inferior Vena Cava, Percutaneous Approach (ICD-10-PCS; 2020-10-22)
PROC: B5191ZA Fluoroscopy of Inferior Vena Cava using Low Osmolar Contrast, Guidance (ICD-10-PCS; 2020-10-22)
PROC: 0JH63XZ Insertion of Tunneled Vascular Access Device into Chest Subcutaneous Tissue and Fascia, Percutaneous Approach (ICD-10-PCS; 2020-10-23)
PROC: 06H033Z Insertion of Infusion Device into Inferior Vena Cava, Percutaneous Approach (ICD-10-PCS; 2020-10-23)
PROC: B5191ZA Fluoroscopy of Inferior Vena Cava using Low Osmolar Contrast, Guidance (ICD-10-PCS; 2020-10-23)
PROC: 0JPW3XZ Removal of Tunneled Vascular Access Device from Lower Extremity Subcutaneous Tissue and Fascia, Percutaneous Approach (ICD-10-PCS; 2020-10-23)
DX: T82.838A Hemorrhage due to vascular prosthetic devices, implants and grafts, initial encounter (principal); J96.00 Acute respiratory failure, unspecified whether with hypoxia or hypercapnia; I13.2 Hypertensive heart and chronic kidney disease with heart failure and with stage 5 chronic kidney disease, or end stage renal disease; E44.1 Mild protein-calorie malnutrition; N18.6 End stage renal disease; E11.22 Type 2 diabetes mellitus with diabetic chronic kidney disease; I82.511 Chronic embolism and thrombosis of right femoral vein; Y84.1 Kidney dialysis as the cause of abnormal reaction of the patient, or of later complication, without mention of misadventure at the time of the procedure; E87.5 Hyperkalemia; Z20.822 Contact with and (suspected) exposure to COVID-19; I87.1 Compression of vein; E11.51 Type 2 diabetes mellitus with diabetic peripheral angiopathy without gangrene; I50.9 Heart failure, unspecified; Z89.511 Acquired absence of right leg below knee; Z89.512 Acquired absence of left leg below knee; Z99.2 Dependence on renal dialysis; Y92.89 Other specified places as the place of occurrence of the external cause; Z79.1 Long term (current) use of non-steroidal anti-inflammatories (NSAID)
CPT/HCPCS: 36415; 36580; 36581; 71045; 77001; 80048; 80053; 80061; 82962; 83036; 83880; 84132; 84443; 84484; 85025; 86705; 86709; 86803; 87340; 87426; 93005; 93970; 94644; 99152; 99153; 99291; C1725; C1750; C1769; J0690; J1200; J1642; J1644; J1650; J1815; J1940; J2270; J2997; J3010; J3490; Q9967; G0500

== ENCOUNTER 2020-10-31 09:22 | Inpatient (IN) | payer MEDICAID ==
[~2020-10-31] VITALS: Ht 152.4 cm; Wt 148.8 kg
[~2020-10-31 09:22] MED LIST changes: -INSLIS SUBCUT; -LANTUSUD SUBCUT
[2020-10-31] MEDS ORDERED: MIDODRINE HCL 5MG TABLET PO ONE ×2 (10:00)
[2020-10-31 10:19] LABS: BASOPHILS % 0.6 % (0.0-2.0); EOSINOPHILS % 13.1 % (0.0-5.0); HEMATOCRIT. 32.3 % (42.0-52.0); HEMOGLOBIN. 10.5 g/dL (14.0-18.0); LYMPHOCYTES % 14.1 % (20.0-50.0); MEAN CORPUSCULAR HEMOGLOBIN 29.8 pg (28.0-32.0); MEAN CORPUSCULAR VOLUME 91.6 fL (80.0-94.0); MEAN PLATELET VOLUME 9.2 fl (7.4-10.4); NEUTROPHILS % 62.2 % (40.0-76.0); PLATELET 163 x1000/uL (130-400); RED BLOOD CELL COUNT 3.53 mill/uL (4.7-6.1); RED CELL DISTRIBUTION WIDTH 16.9 % (11.6-14.6)
[2020-10-31 10:23] LABS: CHLORIDE 96 mEq/L (98-107)
[2020-10-31] MEDS ORDERED: MORPHINE SULFATE 4 MG/ML CPJ (NOT FOR IM USE) IV ONE (11:45)
[2020-10-31] MEDS ORDERED: ASPIRIN 81MG TABLET PO ONE (11:45)
[2020-10-31 12:36] LABS: INR 1.2; PROTHROMBIN TIME 12.5 sec (9.6-11.0)
[2020-10-31] MEDS ORDERED: MORPHINE SULFATE 2 MG/ML CPJ (NOT FOR IM USE) IV PRN (15:45)
[2020-10-31] MEDS ORDERED: ONDANSETRON HCL 4MG/2ML INJ IV PRN (15:45)
[2020-10-31] MEDS ORDERED: IPRATROPIUM/ALBUTEROL 0.5-3(2.5)MG/3ML NEB HHN PRN (15:45)
[2020-10-31] MEDS ORDERED: CLONIDINE 0.1MG TABLET PO PRN (15:45)
[2020-10-31 20:00] VITALS: BP 139/60
[2020-10-31 22:00] VITALS: BP 139/60
[2020-10-31] MEDS: ACETAMINOPHEN 325MG TABLET PO PRN (22:53)
[2020-11-01] VITALS: BP 122/62
[2020-11-01] MEDS ORDERED: MIDO2.5T MT (01:35)
[2020-11-01 04:00] VITALS: BP 135/63
[2020-11-01 08:00] VITALS: BP 137/56
[2020-11-01] MEDS: ACETAMINOPHEN 325MG TABLET PO PRN (08:53)
[2020-11-01] MEDS ORDERED: NALOXONE HCL 0.4MG/ML VIAL IV PRN (09:30)
[2020-11-01 12:00] VITALS: BP 113/53
[2020-11-01] MEDS: FAMOTIDINE 20MG TABLET PO SCH (13:54)
[2020-11-01] MEDS: GABAPENTIN 300MG CAPSULE PO SCH ×2 (13:54→20:50)
[2020-11-01] MEDS: GUAIFENESIN 600MG ER TABLET PO SCH ×2 (14:30→20:51)
[2020-11-01] MEDS ORDERED: BENZONATATE 100MG CAPSULE PO PRN (14:30)
[2020-11-01 16:00] VITALS: BP 119/58
[2020-11-01] MEDS: MIDODRINE HCL 5MG TABLET PO SCH (16:53)
[2020-11-01] MEDS: SEVELAMER CARBONATE 800 MG TABLET PO SCH (16:53)
[2020-11-01] MEDS: LEVOTHYROXINE SODIUM 50MCG TABLET PO SCH (16:53)
[2020-11-01] MEDS: DORZOLAM/TIMOLOL 2.23/0.68% OPHTH DROPS 10ML EACHEYE SCH (16:54)
[2020-11-01] MEDS: BRIMONIDINE 0.2% OPHTH DROPS 5ML BOTHEYE SCH ×2 (16:54→20:51)
[2020-11-01] MEDS ORDERED: CEFTRIAXONE 2 G PREMIX 50 ML IV SCH (17:15)
[2020-11-01] MEDS: AZITHROMYCIN 500 MG TABLET PO SCH (17:26)
[2020-11-01 20:00] VITALS: BP 123/69
[2020-11-01] MEDS: LATANOPROST 0.005% OPHTH DROPS 2.5ML EACHEYE SCH (20:51)
[2020-11-01] MEDS: CEFTRIAXONE 2 G in DEXTROSE 5% WATER 50 ML IV SCH (20:51)
[2020-11-02 04:00] VITALS: BP 122/63
[2020-11-02] MEDS: GABAPENTIN 300MG CAPSULE PO SCH ×3 (05:35→20:58)
[2020-11-02] MEDS: BRIMONIDINE 0.2% OPHTH DROPS 5ML BOTHEYE SCH ×3 (05:35→20:58)
[2020-11-02] MEDS: LEVOTHYROXINE SODIUM 50MCG TABLET PO SCH (06:10)
[2020-11-02] MEDS: SEVELAMER CARBONATE 800 MG TABLET PO SCH ×3 (06:10→16:18)
[2020-11-02 07:20] LABS: BASOPHILS % 0.5 % (0.0-2.0); EOSINOPHILS % 7.3 % (0.0-5.0); HEMATOCRIT. 32.2 % (42.0-52.0); HEMOGLOBIN. 10.2 g/dL (14.0-18.0); MEAN PLATELET VOLUME 9.5 fl (7.4-10.4); MONOCYTES % 10.5 % (2.0-8.0); NEUTROPHILS % 70.7 % (40.0-76.0); PLATELET 171 x1000/uL (130-400); RED BLOOD CELL COUNT 3.39 mill/uL (4.7-6.1); RED CELL DISTRIBUTION WIDTH 16.8 % (11.6-14.6)
[2020-11-02 08:00] VITALS: BP 106/55
[2020-11-02] MEDS ORDERED: FAMOTIDINE(NEO) 1MG/ML SUSP PO SCH (09:00)
[2020-11-02] MEDS: MIDODRINE HCL 5MG TABLET PO SCH ×3 (09:15→16:18)
[2020-11-02] MEDS: FOLIC ACID/VITAMIN B COMP W-C TABLET PO SCH (09:15)
[2020-11-02] MEDS: FAMOTIDINE 20MG TABLET PO SCH (09:15)
[2020-11-02] MEDS: GUAIFENESIN 600MG ER TABLET PO SCH ×2 (09:15→20:17)
[2020-11-02] MEDS: DORZOLAM/TIMOLOL 2.23/0.68% OPHTH DROPS 10ML EACHEYE SCH ×2 (09:16→16:19)
[2020-11-02 12:00] VITALS: BP 123/47
[2020-11-02 16:00] VITALS: BP 132/70
[2020-11-02] MEDS: AZITHROMYCIN 500 MG TABLET PO SCH (16:30)
[2020-11-02 20:00] VITALS: BP 130/64
[2020-11-02] MEDS: CEFTRIAXONE 2 G in DEXTROSE 5% WATER 50 ML IV SCH (20:17)
[2020-11-02] MEDS: LATANOPROST 0.005% OPHTH DROPS 2.5ML EACHEYE SCH (20:17)
[2020-11-03] VITALS: BP 121/54
[2020-11-03] MEDS: ACETAMINOPHEN 325MG TABLET PO PRN ×2 (03:22→08:40)
[2020-11-03 04:00] VITALS: BP 121/45
[2020-11-03] MEDS: GABAPENTIN 300MG CAPSULE PO SCH ×3 (05:19→21:52)
[2020-11-03] MEDS: BRIMONIDINE 0.2% OPHTH DROPS 5ML BOTHEYE SCH ×3 (05:19→21:52)
[2020-11-03] MEDS: SEVELAMER CARBONATE 800 MG TABLET PO SCH ×3 (06:10→17:05)
[2020-11-03] MEDS: LEVOTHYROXINE SODIUM 50MCG TABLET PO SCH (06:10)
[2020-11-03 08:06] VITALS: BP 132/72
[2020-11-03] MEDS: FOLIC ACID/VITAMIN B COMP W-C TABLET PO SCH (08:40)
[2020-11-03] MEDS: FAMOTIDINE 20MG TABLET PO SCH (08:40)
[2020-11-03] MEDS: GUAIFENESIN 600MG ER TABLET PO SCH ×2 (08:40→21:52)
[2020-11-03] MEDS: DORZOLAM/TIMOLOL 2.23/0.68% OPHTH DROPS 10ML EACHEYE SCH ×2 (08:41→17:05)
[2020-11-03] MEDS: MIDODRINE HCL 5MG TABLET PO SCH ×3 (08:41→17:05)
[2020-11-03 12:00] VITALS: BP 141/59
[2020-11-03 16:00] VITALS: BP 117/77
[2020-11-03] MEDS: AZITHROMYCIN 500 MG TABLET PO SCH (17:05)
[2020-11-03 19:56] LABS: HEMATOCRIT. 27.9 % (42.0-52.0); HEMOGLOBIN. 9.4 g/dL (14.0-18.0); MEAN CORPUSCULAR HEMOGLOBIN 30.5 pg (28.0-32.0); MEAN CORPUSCULAR VOLUME 90.3 fL (80.0-94.0); MEAN PLATELET VOLUME 8.9 fl (7.4-10.4); PLATELET 199 x1000/uL (130-400); RED CELL DISTRIBUTION WIDTH 16.4 % (11.6-14.6)
[2020-11-03 20:00] VITALS: BP 131/52
[2020-11-03 21:00] LABS: PLATELET ESTIMATE NORMAL
[2020-11-03] MEDS ORDERED: VANCOMYCIN 1250MG in DEXTROSE 5% WATER 250ML IV SCH (21:00)
[2020-11-03] MEDS: LATANOPROST 0.005% OPHTH DROPS 2.5ML EACHEYE SCH (21:52)
[2020-11-03] MEDS: CEFTRIAXONE 2 G in DEXTROSE 5% WATER 50 ML IV SCH (21:52)
[2020-11-04] VITALS: BP 102/45
[2020-11-04 04:00] VITALS: BP 114/50
[2020-11-04] MEDS: BRIMONIDINE 0.2% OPHTH DROPS 5ML BOTHEYE SCH ×3 (05:22→22:23)
[2020-11-04] MEDS: GABAPENTIN 300MG CAPSULE PO SCH ×3 (05:22→22:17)
[2020-11-04] MEDS: SEVELAMER CARBONATE 800 MG TABLET PO SCH ×3 (06:04→16:44)
[2020-11-04] MEDS: LEVOTHYROXINE SODIUM 50MCG TABLET PO SCH (06:04)
[2020-11-04 07:01] LABS: BASOPHILS % 0.6 % (0.0-2.0); EOSINOPHILS % 12.6 % (0.0-5.0); HEMATOCRIT. 29.8 % (42.0-52.0); HEMOGLOBIN. 9.9 g/dL (14.0-18.0); LYMPHOCYTES % 8.9 % (20.0-50.0); MEAN CORPUSCULAR VOLUME 90.7 fL (80.0-94.0); MEAN PLATELET VOLUME 8.8 fl (7.4-10.4); MONOCYTES % 11.2 % (2.0-8.0); NEUTROPHILS % 66.7 % (40.0-76.0); PLATELET 205 x1000/uL (130-400); RED BLOOD CELL COUNT 3.28 mill/uL (4.7-6.1); RED CELL DISTRIBUTION WIDTH 16.5 % (11.6-14.6)
[2020-11-04 08:00] VITALS: BP 127/59
[2020-11-04] MEDS: GUAIFENESIN 600MG ER TABLET PO SCH ×2 (09:35→22:17)
[2020-11-04] MEDS: MIDODRINE HCL 5MG TABLET PO SCH ×3 (09:35→16:44)
[2020-11-04] MEDS: FOLIC ACID/VITAMIN B COMP W-C TABLET PO SCH (09:35)
[2020-11-04] MEDS: ACETAMINOPHEN 325MG TABLET PO PRN ×2 (09:35→22:18)
[2020-11-04] MEDS: FAMOTIDINE 20MG TABLET PO SCH (09:35)
[2020-11-04] MEDS: DORZOLAM/TIMOLOL 2.23/0.68% OPHTH DROPS 10ML EACHEYE SCH ×2 (09:37→16:47)
[2020-11-04 12:00] VITALS: BP 114/36
[2020-11-04 16:00] VITALS: BP 144/49
[2020-11-04] MEDS: AZITHROMYCIN 500 MG TABLET PO SCH (16:43)
[2020-11-04 20:00] VITALS: BP 107/30
[2020-11-04] MEDS: CEFTRIAXONE 2 G in DEXTROSE 5% WATER 50 ML IV SCH (22:23)
[2020-11-04] MEDS: LATANOPROST 0.005% OPHTH DROPS 2.5ML EACHEYE SCH (22:23)
[2020-11-05] VITALS: BP 123/54
[2020-11-05 04:00] VITALS: BP 149/60
[2020-11-05] MEDS: GABAPENTIN 300MG CAPSULE PO SCH ×3 (06:00→22:10)
[2020-11-05] MEDS: LEVOTHYROXINE SODIUM 50MCG TABLET PO SCH ×2 (06:00→06:40)
[2020-11-05] MEDS: BRIMONIDINE 0.2% OPHTH DROPS 5ML BOTHEYE SCH ×3 (06:00→22:19)
[2020-11-05] MEDS: SEVELAMER CARBONATE 800 MG TABLET PO SCH ×4 (06:16→16:47)
[2020-11-05 07:47] LABS: EOSINOPHILS % 11.4 % (0.0-5.0); HEMATOCRIT. 28.5 % (42.0-52.0); HEMOGLOBIN. 9.3 g/dL (14.0-18.0); LYMPHOCYTES % 7.1 % (20.0-50.0); MEAN CORPUSCULAR VOLUME 91.9 fL (80.0-94.0); MEAN PLATELET VOLUME 9.3 fl (7.4-10.4); MONOCYTES % 6.9 % (2.0-8.0); NEUTROPHILS % 73.6 % (40.0-76.0); PLATELET 179 x1000/uL (130-400)
[2020-11-05 08:00] VITALS: BP 145/60
[2020-11-05] MEDS: FOLIC ACID/VITAMIN B COMP W-C TABLET PO SCH (08:22)
[2020-11-05] MEDS: GUAIFENESIN 600MG ER TABLET PO SCH ×2 (08:22→20:23)
[2020-11-05] MEDS: FAMOTIDINE 20MG TABLET PO SCH (08:22)
[2020-11-05] MEDS: MIDODRINE HCL 5MG TABLET PO SCH ×3 (08:23→16:48)
[2020-11-05] MEDS: DORZOLAM/TIMOLOL 2.23/0.68% OPHTH DROPS 10ML EACHEYE SCH ×2 (08:23→16:48)
[2020-11-05] MEDS: ACETAMINOPHEN 325MG TABLET PO PRN ×2 (08:29→12:41)
[2020-11-05 12:00] VITALS: BP 106/56
[2020-11-05 16:00] VITALS: BP 112/41
[2020-11-05] MEDS: AZITHROMYCIN 500 MG TABLET PO SCH (16:48)
[2020-11-05] MEDS ORDERED: HEPARIN SODIUM 1,000 UNIT/1ML VIAL IV ONE (17:45)
[2020-11-05] MEDS ORDERED: VANCOMYCIN 750 MG PREMIX 150 ML IV NR (18:00)
[2020-11-05] MEDS: CEFTRIAXONE 2 G in DEXTROSE 5% WATER 50 ML IV SCH (19:34)
[2020-11-05 20:00] VITALS: BP 124/49
[2020-11-05] MEDS: LATANOPROST 0.005% OPHTH DROPS 2.5ML EACHEYE SCH (20:23)
[2020-11-06] VITALS: BP 147/71
[2020-11-06 04:00] VITALS: BP 96/55
[2020-11-06] MEDS: LEVOTHYROXINE SODIUM 50MCG TABLET PO SCH (06:08)
[2020-11-06] MEDS: BRIMONIDINE 0.2% OPHTH DROPS 5ML BOTHEYE SCH ×3 (06:08→21:10)
[2020-11-06] MEDS: GABAPENTIN 300MG CAPSULE PO SCH ×3 (06:09→21:10)
[2020-11-06 06:42] LABS: HEMATOCRIT. 25.7 % (42.0-52.0); HEMOGLOBIN. 8.6 g/dL (14.0-18.0); MEAN CORPUSCULAR VOLUME 89.4 fL (80.0-94.0); MEAN PLATELET VOLUME 8.9 fl (7.4-10.4); PLATELET 171 x1000/uL (130-400); RED BLOOD CELL COUNT 2.87 mill/uL (4.7-6.1); RED CELL DISTRIBUTION WIDTH 16.8 % (11.6-14.6)
[2020-11-06 08:00] VITALS: BP 86/45
[2020-11-06] MEDS: MIDODRINE HCL 5MG TABLET PO SCH ×3 (08:32→17:00)
[2020-11-06] MEDS: SEVELAMER CARBONATE 800 MG TABLET PO SCH ×3 (08:33→17:01)
[2020-11-06] MEDS: DORZOLAM/TIMOLOL 2.23/0.68% OPHTH DROPS 10ML EACHEYE SCH ×2 (08:33→17:00)
[2020-11-06] MEDS: FOLIC ACID/VITAMIN B COMP W-C TABLET PO SCH (08:33)
[2020-11-06] MEDS: FAMOTIDINE 20MG TABLET PO SCH (08:33)
[2020-11-06] MEDS: GUAIFENESIN 600MG ER TABLET PO SCH ×2 (08:33→20:22)
[2020-11-06 12:00] VITALS: BP 94/51
[2020-11-06] MEDS ORDERED: CEFEPIME 2,000 MG in DEXT 5% WATER 100 ML IV SCH (12:00)
[2020-11-06] MEDS: METRONIDAZOLE 500 MG PREMIX 100 ML IV SCH (13:08)
[2020-11-06 16:00] VITALS: BP 93/40
[2020-11-06 20:00] VITALS: BP 132/51
[2020-11-06] MEDS: LATANOPROST 0.005% OPHTH DROPS 2.5ML EACHEYE SCH (20:23)
[2020-11-06 21:59] LABS: PLATELET ESTIMATE NORMAL
[2020-11-07] VITALS: BP 127/47
[2020-11-07] MEDS: METRONIDAZOLE 500 MG PREMIX 100 ML IV SCH (01:03)
[2020-11-07 04:00] VITALS: BP 133/56
[2020-11-07] MEDS: BRIMONIDINE 0.2% OPHTH DROPS 5ML BOTHEYE SCH ×3 (05:22→21:03)
[2020-11-07] MEDS: GABAPENTIN 300MG CAPSULE PO SCH ×3 (05:22→21:02)
[2020-11-07] MEDS: LEVOTHYROXINE SODIUM 50MCG TABLET PO SCH (05:22)
[2020-11-07 07:07] LABS: HEMATOCRIT. 23.2 % (42.0-52.0); HEMOGLOBIN. 7.6 g/dL (14.0-18.0); MEAN CORPUSCULAR HEMOGLOBIN 29.8 pg (28.0-32.0); MEAN CORPUSCULAR VOLUME 90.4 fL (80.0-94.0); PLATELET 180 x1000/uL (130-400); RED BLOOD CELL COUNT 2.57 mill/uL (4.7-6.1)
[2020-11-07 08:00] VITALS: BP 101/46
[2020-11-07] MEDS: DORZOLAM/TIMOLOL 2.23/0.68% OPHTH DROPS 10ML EACHEYE SCH ×2 (08:40→17:42)
[2020-11-07] MEDS: SEVELAMER CARBONATE 800 MG TABLET PO SCH ×3 (08:42→17:42)
[2020-11-07] MEDS: GUAIFENESIN 600MG ER TABLET PO SCH ×2 (08:42→21:02)
[2020-11-07] MEDS: FAMOTIDINE 20MG TABLET PO SCH (08:42)
[2020-11-07] MEDS: FOLIC ACID/VITAMIN B COMP W-C TABLET PO SCH (08:42)
[2020-11-07] MEDS: MIDODRINE HCL 5MG TABLET PO SCH ×3 (08:43→17:42)
[2020-11-07] MEDS ORDERED: NALOXONE HCL 0.4MG/ML VIAL IV PRN (09:45)
[2020-11-07] MEDS: MEROPENEM 1,000 MG in SODIUM CHLORIDE 0.9% 100 ML IV SCH (09:46)
[2020-11-07] MEDS: MORPHINE SULFATE 2 MG/ML CPJ (NOT FOR IM USE) IV PRN ×2 (09:46→19:51)
[2020-11-07 12:00] VITALS: BP 106/44
[2020-11-07 14:02] LABS: PLATELET ESTIMATE NORMAL
[2020-11-07 16:00] VITALS: BP 103/60
[2020-11-07] MEDS ORDERED: VANCOMYCIN 1 G PREMIX 200 ML IV SCH (18:00)
[2020-11-07 20:00] VITALS: BP 109/68
[2020-11-07] MEDS: LATANOPROST 0.005% OPHTH DROPS 2.5ML EACHEYE SCH (21:02)
[2020-11-07] MEDS: DIPHENHYDRAMINE 50MG/ML VIAL IV PRN (21:02)
[2020-11-08] VITALS: BP 152/79
[2020-11-08] MEDS: MORPHINE SULFATE 2 MG/ML CPJ (NOT FOR IM USE) IV PRN (01:49)
[2020-11-08 04:00] VITALS: BP 142/78
[2020-11-08] MEDS: DIPHENHYDRAMINE 50MG/ML VIAL IV PRN (04:09)
[2020-11-08] MEDS: GABAPENTIN 300MG CAPSULE PO SCH ×3 (05:51→21:16)
[2020-11-08] MEDS: LEVOTHYROXINE SODIUM 50MCG TABLET PO SCH (05:51)
[2020-11-08] MEDS: BRIMONIDINE 0.2% OPHTH DROPS 5ML BOTHEYE SCH ×3 (05:51→21:15)
[2020-11-08] MEDS: SEVELAMER CARBONATE 800 MG TABLET PO SCH ×3 (06:31→17:46)
[2020-11-08 08:00] VITALS: BP 118/40
[2020-11-08] MEDS: MIDODRINE HCL 5MG TABLET PO SCH ×3 (08:46→17:47)
[2020-11-08] MEDS: GUAIFENESIN 600MG ER TABLET PO SCH ×2 (08:46→21:16)
[2020-11-08] MEDS: FOLIC ACID/VITAMIN B COMP W-C TABLET PO SCH (08:46)
[2020-11-08] MEDS: FAMOTIDINE 20MG TABLET PO SCH (08:46)
[2020-11-08] MEDS: MEROPENEM 1,000 MG in SODIUM CHLORIDE 0.9% 100 ML IV SCH (08:46)
[2020-11-08] MEDS: DORZOLAM/TIMOLOL 2.23/0.68% OPHTH DROPS 10ML EACHEYE SCH ×2 (08:47→17:52)
[2020-11-08 09:39] LABS: HEMATOCRIT. 27.3 % (42.0-52.0); HEMOGLOBIN. 9.1 g/dL (14.0-18.0); MEAN CORPUSCULAR HEMOGLOBIN 29.6 pg (28.0-32.0); MEAN CORPUSCULAR VOLUME 88.3 fL (80.0-94.0); MEAN PLATELET VOLUME 8.9 fl (7.4-10.4); PLATELET 195 x1000/uL (130-400); RED BLOOD CELL COUNT 3.09 mill/uL (4.7-6.1)
[2020-11-08 12:00] VITALS: BP 101/36
[2020-11-08 14:47] LABS: PLATELET ESTIMATE NORMAL
[2020-11-08 16:00] VITALS: BP 114/52
[2020-11-08 20:00] VITALS: BP 107/31
[2020-11-08] MEDS ORDERED: EPOETIN ALFA 10000UNITS/ML VIAL SUBCUT SCH (21:00)
[2020-11-08] MEDS: LATANOPROST 0.005% OPHTH DROPS 2.5ML EACHEYE SCH (21:15)
[2020-11-09] VITALS: BP 112/45
[2020-11-09 04:00] VITALS: BP 127/53
[2020-11-09] MEDS: LEVOTHYROXINE SODIUM 50MCG TABLET PO SCH (05:54)
[2020-11-09] MEDS: GABAPENTIN 300MG CAPSULE PO SCH ×3 (05:54→20:50)
[2020-11-09] MEDS: BRIMONIDINE 0.2% OPHTH DROPS 5ML BOTHEYE SCH ×3 (05:55→20:50)
[2020-11-09] MEDS: MORPHINE SULFATE 2 MG/ML CPJ (NOT FOR IM USE) IV PRN ×2 (06:00→23:39)
[2020-11-09] MEDS: SEVELAMER CARBONATE 800 MG TABLET PO SCH ×3 (06:25→17:18)
[2020-11-09 08:00] VITALS: BP 130/61
[2020-11-09] MEDS: FOLIC ACID/VITAMIN B COMP W-C TABLET PO SCH (09:38)
[2020-11-09] MEDS: GUAIFENESIN 600MG ER TABLET PO SCH ×2 (09:38→20:50)
[2020-11-09] MEDS: MEROPENEM 1,000 MG in SODIUM CHLORIDE 0.9% 100 ML IV SCH (09:39)
[2020-11-09] MEDS: FAMOTIDINE 20MG TABLET PO SCH (09:39)
[2020-11-09] MEDS: DORZOLAM/TIMOLOL 2.23/0.68% OPHTH DROPS 10ML EACHEYE SCH ×2 (09:39→17:18)
[2020-11-09] MEDS: MIDODRINE HCL 5MG TABLET PO SCH ×3 (09:40→17:19)
[2020-11-09 12:00] VITALS: BP 145/70
[2020-11-09 16:00] VITALS: BP 112/40
[2020-11-09 16:32] LABS: BASOPHILS % 0.6 % (0.0-2.0); HEMATOCRIT. 25.3 % (42.0-52.0); HEMOGLOBIN. 8.4 g/dL (14.0-18.0); LYMPHOCYTES % 11.1 % (20.0-50.0); MEAN CORPUSCULAR HEMOGLOBIN 29.8 pg (28.0-32.0); MEAN CORPUSCULAR VOLUME 89.3 fL (80.0-94.0); MEAN PLATELET VOLUME 9.3 fl (7.4-10.4); NEUTROPHILS % 70.3 % (40.0-76.0); PLATELET 208 x1000/uL (130-400); RED BLOOD CELL COUNT 2.83 mill/uL (4.7-6.1); RED CELL DISTRIBUTION WIDTH 17.1 % (11.6-14.6)
[2020-11-09] MEDS: POLYETHYLENE GLYCOL 3350 (17GM) 1 DOSE PACK PO SCH (18:38)
[2020-11-09 20:00] VITALS: BP 110/45
[2020-11-09] MEDS ORDERED: HEPARIN SODIUM 1,000 UNIT/1ML VIAL IV NR (20:45)
[2020-11-09] MEDS: LATANOPROST 0.005% OPHTH DROPS 2.5ML EACHEYE SCH (20:50)
[2020-11-09] MEDS ORDERED: VANCOMYCIN 750 MG PREMIX 150 ML IV SCH (21:00)
[2020-11-10] VITALS: BP 132/61
[2020-11-10 04:00] VITALS: BP 125/56
[2020-11-10] MEDS: DIPHENHYDRAMINE 50MG/ML VIAL IV PRN (04:07)
[2020-11-10] MEDS: GABAPENTIN 300MG CAPSULE PO SCH ×3 (05:40→20:45)
[2020-11-10] MEDS: LEVOTHYROXINE SODIUM 50MCG TABLET PO SCH (05:40)
[2020-11-10] MEDS: BRIMONIDINE 0.2% OPHTH DROPS 5ML BOTHEYE SCH ×3 (05:41→20:46)
[2020-11-10] MEDS: SEVELAMER CARBONATE 800 MG TABLET PO SCH ×3 (06:31→17:46)
[2020-11-10 08:00] VITALS: BP 163/63
[2020-11-10] MEDS: MIDODRINE HCL 5MG TABLET PO SCH ×3 (09:00→17:00)
[2020-11-10] MEDS: POLYETHYLENE GLYCOL 3350 (17GM) 1 DOSE PACK PO SCH (09:34)
[2020-11-10] MEDS: MEROPENEM 1,000 MG in SODIUM CHLORIDE 0.9% 100 ML IV SCH (09:34)
[2020-11-10] MEDS: FOLIC ACID/VITAMIN B COMP W-C TABLET PO SCH (09:34)
[2020-11-10] MEDS: GUAIFENESIN 600MG ER TABLET PO SCH ×2 (09:34→20:46)
[2020-11-10] MEDS: FAMOTIDINE 20MG TABLET PO SCH (09:34)
[2020-11-10] MEDS: DORZOLAM/TIMOLOL 2.23/0.68% OPHTH DROPS 10ML EACHEYE SCH ×2 (09:37→17:46)
[2020-11-10 12:00] VITALS: BP 132/52
[2020-11-10 16:00] VITALS: BP 136/50
[2020-11-10] MEDS: MORPHINE SULFATE 2 MG/ML CPJ (NOT FOR IM USE) IV PRN (17:46)
[2020-11-10 20:00] VITALS: BP 115/54
[2020-11-10] MEDS: EPOETIN ALFA-EPBX 10,000 UNIT/ML VIAL SUBCUT SCH (20:46)
[2020-11-10] MEDS: LATANOPROST 0.005% OPHTH DROPS 2.5ML EACHEYE SCH (20:46)
[2020-11-11] VITALS: BP 135/60
[2020-11-11 04:00] VITALS: BP 158/81
[2020-11-11] MEDS: LEVOTHYROXINE SODIUM 50MCG TABLET PO SCH (05:07)
[2020-11-11] MEDS: SEVELAMER CARBONATE 800 MG TABLET PO SCH ×3 (05:07→16:27)
[2020-11-11] MEDS: BRIMONIDINE 0.2% OPHTH DROPS 5ML BOTHEYE SCH ×3 (05:08→21:10)
[2020-11-11] MEDS: GABAPENTIN 300MG CAPSULE PO SCH ×3 (05:12→20:52)
[2020-11-11 08:00] VITALS: BP 151/83
[2020-11-11] MEDS: POLYETHYLENE GLYCOL 3350 (17GM) 1 DOSE PACK PO SCH (08:29)
[2020-11-11] MEDS: FOLIC ACID/VITAMIN B COMP W-C TABLET PO SCH (08:30)
[2020-11-11] MEDS: MIDODRINE HCL 5MG TABLET PO SCH ×3 (08:30→16:25)
[2020-11-11] MEDS: MEROPENEM 1,000 MG in SODIUM CHLORIDE 0.9% 100 ML IV SCH (08:30)
[2020-11-11] MEDS: FAMOTIDINE 20MG TABLET PO SCH (08:30)
[2020-11-11] MEDS: DORZOLAM/TIMOLOL 2.23/0.68% OPHTH DROPS 10ML EACHEYE SCH ×2 (08:30→16:27)
[2020-11-11] MEDS: GUAIFENESIN 600MG ER TABLET PO SCH ×2 (08:30→20:52)
[2020-11-11 15:38] LABS: BASOPHILS % 0.5 % (0.0-2.0); EOSINOPHILS % 7.7 % (0.0-5.0); HEMATOCRIT. 26.2 % (42.0-52.0); HEMOGLOBIN. 8.4 g/dL (14.0-18.0); LYMPHOCYTES % 11.9 % (20.0-50.0); MEAN CORPUSCULAR VOLUME 90.6 fL (80.0-94.0); MEAN PLATELET VOLUME 9.1 fl (7.4-10.4); MONOCYTES % 8.6 % (2.0-8.0); NEUTROPHILS % 71.3 % (40.0-76.0); PLATELET 254 x1000/uL (130-400); RED BLOOD CELL COUNT 2.89 mill/uL (4.7-6.1); RED CELL DISTRIBUTION WIDTH 17.1 % (11.6-14.6)
[2020-11-11 16:00] VITALS: BP 118/63
[2020-11-11 20:00] VITALS: BP 130/75
[2020-11-11] MEDS: MORPHINE SULFATE 2 MG/ML CPJ (NOT FOR IM USE) IV PRN (20:52)
[2020-11-11] MEDS: LATANOPROST 0.005% OPHTH DROPS 2.5ML EACHEYE SCH (21:10)
[2020-11-11 22:59] LABS: T4 FREE 0.89 ng/dL (0.76-1.46)
[2020-11-11 23:18] LABS: FOLIC ACID (FOLATE) SERUM 17.7 ng/mL (>5.38)
[2020-11-12] VITALS: BP 138/72
[2020-11-12 04:00] VITALS: BP 151/70
[2020-11-12] MEDS: GABAPENTIN 300MG CAPSULE PO SCH ×3 (05:27→22:00)
[2020-11-12] MEDS: BRIMONIDINE 0.2% OPHTH DROPS 5ML BOTHEYE SCH ×3 (05:28→22:08)
[2020-11-12] MEDS: LEVOTHYROXINE SODIUM 50MCG TABLET PO SCH (06:29)
[2020-11-12] MEDS: SEVELAMER CARBONATE 800 MG TABLET PO SCH ×3 (06:29→16:54)
[2020-11-12 07:13] LABS: BASOPHILS % 0.4 % (0.0-2.0); EOSINOPHILS % 9.4 % (0.0-5.0); HEMATOCRIT. 25.3 % (42.0-52.0); HEMOGLOBIN. 8.4 g/dL (14.0-18.0); LYMPHOCYTES % 13.6 % (20.0-50.0); MEAN CORPUSCULAR HEMOGLOBIN 30.1 pg (28.0-32.0); MEAN CORPUSCULAR VOLUME 90.4 fL (80.0-94.0); MEAN PLATELET VOLUME 9.1 fl (7.4-10.4); NEUTROPHILS % 66.6 % (40.0-76.0); PLATELET 266 x1000/uL (130-400)
[2020-11-12 08:00] VITALS: BP 130/70
[2020-11-12] MEDS: POLYETHYLENE GLYCOL 3350 (17GM) 1 DOSE PACK PO SCH (08:53)
[2020-11-12] MEDS: FOLIC ACID/VITAMIN B COMP W-C TABLET PO SCH (08:53)
[2020-11-12] MEDS: GUAIFENESIN 600MG ER TABLET PO SCH ×2 (08:53→21:00)
[2020-11-12] MEDS: FAMOTIDINE 20MG TABLET PO SCH (08:53)
[2020-11-12] MEDS: DORZOLAM/TIMOLOL 2.23/0.68% OPHTH DROPS 10ML EACHEYE SCH ×2 (08:53→16:54)
[2020-11-12] MEDS: MIDODRINE HCL 5MG TABLET PO SCH ×3 (08:54→16:43)
[2020-11-12] MEDS: MEROPENEM 1,000 MG in SODIUM CHLORIDE 0.9% 100 ML IV SCH (08:54)
[2020-11-12 12:00] VITALS: BP 132/75
[2020-11-12 16:00] VITALS: BP 184/74
[2020-11-12 20:00] VITALS: BP 140/75
[2020-11-12] MEDS: LATANOPROST 0.005% OPHTH DROPS 2.5ML EACHEYE SCH (22:08)
[2020-11-13] VITALS: BP 134/68
[2020-11-13 04:00] VITALS: BP 166/62
[2020-11-13] MEDS ORDERED: MAGNESIUM/ALUMINUM HYDROXIDE/SIMETHICONE 30ML UDC PO PRN (05:45)
[2020-11-13] MEDS: SEVELAMER CARBONATE 800 MG TABLET PO SCH ×3 (06:46→17:29)
[2020-11-13] MEDS: LEVOTHYROXINE SODIUM 50MCG TABLET PO SCH (06:46)
[2020-11-13] MEDS: GABAPENTIN 300MG CAPSULE PO SCH ×3 (06:46→21:20)
[2020-11-13] MEDS: BRIMONIDINE 0.2% OPHTH DROPS 5ML BOTHEYE SCH ×3 (06:47→21:20)
[2020-11-13 08:00] VITALS: BP 142/79
[2020-11-13] MEDS: MIDODRINE HCL 5MG TABLET PO SCH ×3 (09:00→17:00)
[2020-11-13] MEDS: DORZOLAM/TIMOLOL 2.23/0.68% OPHTH DROPS 10ML EACHEYE SCH ×2 (09:53→17:30)
[2020-11-13] MEDS: GUAIFENESIN 600MG ER TABLET PO SCH ×2 (09:53→19:56)
[2020-11-13] MEDS: MEROPENEM 1,000 MG in SODIUM CHLORIDE 0.9% 100 ML IV SCH (09:53)
[2020-11-13] MEDS: FOLIC ACID/VITAMIN B COMP W-C TABLET PO SCH (09:53)
[2020-11-13] MEDS: FAMOTIDINE 20MG TABLET PO SCH (09:53)
[2020-11-13] MEDS: POLYETHYLENE GLYCOL 3350 (17GM) 1 DOSE PACK PO SCH (09:53)
[2020-11-13 12:00] VITALS: BP 148/72
[2020-11-13 16:00] VITALS: BP 129/72
[2020-11-13] MEDS: ACETAMINOPHEN 325MG TABLET PO PRN (17:30)
[2020-11-13] MEDS: LATANOPROST 0.005% OPHTH DROPS 2.5ML EACHEYE SCH (19:56)
[2020-11-13] MEDS: EPOETIN ALFA-EPBX 10,000 UNIT/ML VIAL SUBCUT SCH (19:57)
[2020-11-13 20:00] VITALS: BP 104/64
[2020-11-13 21:19] LABS: BASOPHILS % 0.4 % (0.0-2.0); HEMATOCRIT. 23.7 % (42.0-52.0); HEMOGLOBIN. 8.1 g/dL (14.0-18.0); LYMPHOCYTES % 18.1 % (20.0-50.0); MEAN CORPUSCULAR HEMOGLOBIN 30.6 pg (28.0-32.0); MEAN PLATELET VOLUME 8.7 fl (7.4-10.4); MONOCYTES % 11.6 % (2.0-8.0); NEUTROPHILS % 61.9 % (40.0-76.0); PLATELET 241 x1000/uL (130-400); RED BLOOD CELL COUNT 2.64 mill/uL (4.7-6.1); RED CELL DISTRIBUTION WIDTH 17.2 % (11.6-14.6)
[2020-11-14] VITALS: BP 114/70
[2020-11-14 04:00] VITALS: BP 101/60
[2020-11-14] MEDS: ACETAMINOPHEN 325MG TABLET PO PRN (05:18)
[2020-11-14] MEDS: BRIMONIDINE 0.2% OPHTH DROPS 5ML BOTHEYE SCH ×3 (05:18→21:32)
[2020-11-14] MEDS: GABAPENTIN 300MG CAPSULE PO SCH ×3 (05:18→21:32)
[2020-11-14] MEDS: LEVOTHYROXINE SODIUM 50MCG TABLET PO SCH (06:19)
[2020-11-14] MEDS: SEVELAMER CARBONATE 800 MG TABLET PO SCH ×3 (06:19→18:03)
[2020-11-14 08:00] VITALS: BP 152/71
[2020-11-14] MEDS: GUAIFENESIN 600MG ER TABLET PO SCH ×2 (08:32→21:32)
[2020-11-14] MEDS: FOLIC ACID/VITAMIN B COMP W-C TABLET PO SCH (08:32)
[2020-11-14] MEDS: POLYETHYLENE GLYCOL 3350 (17GM) 1 DOSE PACK PO SCH (08:32)
[2020-11-14] MEDS: MIDODRINE HCL 5MG TABLET PO SCH ×3 (08:33→18:00)
[2020-11-14] MEDS: FAMOTIDINE 20MG TABLET PO SCH (08:36)
[2020-11-14] MEDS: DORZOLAM/TIMOLOL 2.23/0.68% OPHTH DROPS 10ML EACHEYE SCH ×2 (10:15→18:01)
[2020-11-14] MEDS: MEROPENEM 1,000 MG in SODIUM CHLORIDE 0.9% 100 ML IV SCH (11:50)
[2020-11-14 12:00] VITALS: BP 148/78
[2020-11-14 16:00] VITALS: BP 117/75
[2020-11-14 20:00] VITALS: BP 136/73
[2020-11-14] MEDS: LATANOPROST 0.005% OPHTH DROPS 2.5ML EACHEYE SCH (21:32)
[2020-11-15] VITALS: BP 135/69
[2020-11-15 04:00] VITALS: BP 138/79
[2020-11-15] MEDS: SEVELAMER CARBONATE 800 MG TABLET PO SCH ×3 (06:15→17:48)
[2020-11-15] MEDS: LEVOTHYROXINE SODIUM 50MCG TABLET PO SCH (06:16)
[2020-11-15] MEDS: GABAPENTIN 300MG CAPSULE PO SCH ×2 (06:16→13:17)
[2020-11-15] MEDS: BRIMONIDINE 0.2% OPHTH DROPS 5ML BOTHEYE SCH ×2 (06:16→13:14)
[2020-11-15 08:00] VITALS: BP 144/70
[2020-11-15] MEDS: MIDODRINE HCL 5MG TABLET PO SCH ×3 (09:30→17:48)
[2020-11-15] MEDS: FOLIC ACID/VITAMIN B COMP W-C TABLET PO SCH (09:30)
[2020-11-15] MEDS: MEROPENEM 1,000 MG in SODIUM CHLORIDE 0.9% 100 ML IV SCH (09:31)
[2020-11-15] MEDS: FAMOTIDINE 20MG TABLET PO SCH (09:31)
[2020-11-15] MEDS: GUAIFENESIN 600MG ER TABLET PO SCH (09:31)
[2020-11-15] MEDS: POLYETHYLENE GLYCOL 3350 (17GM) 1 DOSE PACK PO SCH (09:32)
[2020-11-15] MEDS: DORZOLAM/TIMOLOL 2.23/0.68% OPHTH DROPS 10ML EACHEYE SCH ×2 (09:32→17:49)
[2020-11-15 12:00] VITALS: BP 152/84
[2020-11-15 16:00] VITALS: BP 137/67
[2020-11-15 19:31] VITALS: BP 147/75
== END 2020-11-15 20:38 | disposition home health service (06) | DRG 194 ==
LOC: ER 09:22 → 7EST 12:27 → EDBEDREQTM 12:34 → EDBEDREQSVC 12:34 → EDBEDREQ 12:34 → ENRESERV 19:01 → ER 20:05
PROVIDERS: ADMIT Internal Medicine; ATTEND Internal Medicine
PROC: 5A1D70Z Performance of Urinary Filtration, Intermittent, Less than 6 Hours Per Day (ICD-10-PCS; 2020-11-02)
PROC: 02HV33Z Insertion of Infusion Device into Superior Vena Cava, Percutaneous Approach (ICD-10-PCS; principal; 2020-11-03)
PROC: B548ZZA Ultrasonography of Superior Vena Cava, Guidance (ICD-10-PCS; 2020-11-03)
PROC: 5A1D70Z Performance of Urinary Filtration, Intermittent, Less than 6 Hours Per Day (ICD-10-PCS; 2020-11-03)
PROC: 5A1D70Z Performance of Urinary Filtration, Intermittent, Less than 6 Hours Per Day (ICD-10-PCS; 2020-11-05)
PROC: 5A1D70Z Performance of Urinary Filtration, Intermittent, Less than 6 Hours Per Day (ICD-10-PCS; 2020-11-07)
PROC: 5A1D70Z Performance of Urinary Filtration, Intermittent, Less than 6 Hours Per Day (ICD-10-PCS; 2020-11-09)
PROC: 05HY33Z Insertion of Infusion Device into Upper Vein, Percutaneous Approach (ICD-10-PCS; 2020-11-10)
PROC: B54MZZA Ultrasonography of Right Upper Extremity Veins, Guidance (ICD-10-PCS; 2020-11-10)
PROC: 5A1D70Z Performance of Urinary Filtration, Intermittent, Less than 6 Hours Per Day (ICD-10-PCS; 2020-11-14)
DX: I13.2 Hypertensive heart and chronic kidney disease with heart failure and with stage 5 chronic kidney disease, or end stage renal disease (principal); R57.8 Other shock; G92 Toxic encephalopathy; A41.9 Sepsis, unspecified organism; S37.022A Major contusion of left kidney, initial encounter; N18.6 End stage renal disease; I50.33 Acute on chronic diastolic (congestive) heart failure; I82.509 Chronic embolism and thrombosis of unspecified deep veins of unspecified lower extremity; E11.22 Type 2 diabetes mellitus with diabetic chronic kidney disease; E11.51 Type 2 diabetes mellitus with diabetic peripheral angiopathy without gangrene; K76.9 Liver disease, unspecified; D64.9 Anemia, unspecified; Z20.822 Contact with and (suspected) exposure to COVID-19; H54.8 Legal blindness, as defined in USA; E66.9 Obesity, unspecified; E87.5 Hyperkalemia; N28.89 Other specified disorders of kidney and ureter; R00.1 Bradycardia, unspecified; I44.0 Atrioventricular block, first degree; X58.XXXA Exposure to other specified factors, initial encounter; Z79.4 Long term (current) use of insulin; Z89.511 Acquired absence of right leg below knee; Z89.512 Acquired absence of left leg below knee; Z95.828 Presence of other vascular implants and grafts; Z99.2 Dependence on renal dialysis; Z79.1 Long term (current) use of non-steroidal anti-inflammatories (NSAID); Z79.899 Other long term (current) drug therapy; Y93.89 Activity, other specified; Y92.89 Other specified places as the place of occurrence of the external cause; Y99.8 Other external cause status; Z68.44 Body mass index [BMI] 60.0-69.9, adult; D72.821 Monocytosis (symptomatic); Z71.3 Dietary counseling and surveillance
CPT/HCPCS: 36415; 71045; 71250; 74176; 76937; 80048; 80053; 80202; 82140; 82607; 82746; 82962; 83036; 83605; 83735; 83880; 84100; 84145; 84439; 84443; 84481; 84484; 85025; 87426; 93005; 93306; 93970; 99285; C1725; C1769; C1892; C1893; J0692; J0696; J0885; J1200; J1644; J2185; J2270; J3370; J3490; J7040; J7050; J7060

== ENCOUNTER 2020-11-16 07:19 | Emergency (ER) | payer MEDICAID ==
[~2020-11-16] VITALS: Ht 152.4 cm; Wt 50.0 kg
[~2020-11-16 07:19] MED LIST changes: +MIDO2.5T MT
[2020-11-16 12:52] VITALS: BP 150/88
== END 2020-11-16 13:01 | disposition home or self-care (01) ==
LOC: ER 07:19
DX: E11.22 Type 2 diabetes mellitus with diabetic chronic kidney disease (principal); I12.0 Hypertensive chronic kidney disease with stage 5 chronic kidney disease or end stage renal disease; N18.6 End stage renal disease; E78.00 Pure hypercholesterolemia, unspecified; Z79.899 Other long term (current) drug therapy; Z98.890 Other specified postprocedural states
CPT/HCPCS: 99285

== ENCOUNTER 2021-05-10 06:36 | Emergency (ER) | payer MEDICAID ==
[2021-05-10] VITALS (12 sets, daily range): BP systolic 163–202; BP diastolic 98–106
[~2021-05-10] VITALS: Ht 170.2 cm; Wt 91.0 kg
[~2021-05-10 06:36] MED LIST changes: -OMEP40CA12 PO; +OMEP40CA20 PO
[2021-05-10] MEDS ORDERED: CEFAZOLIN 1000MG PREMIX 50 ML IV NR (07:30)
[2021-05-10 07:53] LABS: BASOPHILS % 0.3 % (0.0-2.0); EOSINOPHILS % 7.2 % (0.0-5.0); HEMATOCRIT. 34.4 % (42.0-52.0); HEMOGLOBIN. 11.3 g/dL (14.0-18.0); LYMPHOCYTES % 18.8 % (20.0-50.0); MEAN CORPUSCULAR HEMOGLOBIN 28.2 pg (28.0-32.0); MEAN CORPUSCULAR VOLUME 86.3 fL (80.0-94.0); MEAN PLATELET VOLUME 8.2 fl (7.4-10.4); NEUTROPHILS % 67.7 % (40.0-76.0); PLATELET 190 x1000/uL (130-400); RED BLOOD CELL COUNT 3.99 mill/uL (4.7-6.1); RED CELL DISTRIBUTION WIDTH 18.1 % (11.6-14.6)
[2021-05-10 08:00] LABS: CHLORIDE 98 mEq/L (98-107)
[2021-05-10 08:06] LABS: INR 1.2; PROTHROMBIN TIME 12.4 sec (9.6-11.0)
[2021-05-10] MEDS ORDERED: LIDOCAINE HCL 1% 30ML VIAL (10MG/ML) ONE (08:44)
[2021-05-10] MEDS ORDERED: CEFAZOLIN 1000MG PREMIX 50 ML IV ONE (08:44)
[2021-05-10] MEDS ORDERED: HEPARIN 1000 UNITS/ML 10ML ONE (08:48)
[2021-05-10] MEDS ORDERED: FENTANYL CITRATE/PF 50MCG/ML 2ML VIAL ONE (09:37)
[2021-05-10] MEDS ORDERED: FENTANYL CITRATE/PF 50MCG/ML 2ML VIAL IV ONE (09:45)
== END 2021-05-10 14:28 | disposition home or self-care (01) ==
LOC: ER 06:36
DX: T82.41XA Breakdown (mechanical) of vascular dialysis catheter, initial encounter (principal); E11.22 Type 2 diabetes mellitus with diabetic chronic kidney disease; I12.9 Hypertensive chronic kidney disease with stage 1 through stage 4 chronic kidney disease, or unspecified chronic kidney disease; N18.9 Chronic kidney disease, unspecified; E78.00 Pure hypercholesterolemia, unspecified; Z20.822 Contact with and (suspected) exposure to COVID-19; Z79.899 Other long term (current) drug therapy
CPT/HCPCS: 36415; 36581; 71045; 77001; 80053; 85025; 85610; 87426; 96365; 96375; 99285; C1750; C1769; J0690; J1644; J3010; J3490; Z7610; 99152; 99153; G0500

== ENCOUNTER 2021-10-31 23:58 | Emergency (ER) | payer MEDICAID ==
[~2021-10-31] VITALS: Ht 172.7 cm; Wt 114.0 kg
[2021-11-01 02:58] LABS: BASOPHILS % 0.5 % (0.0-2.0); EOSINOPHILS % 6.5 % (0.0-5.0); LYMPHOCYTES % 26.4 % (20.0-50.0); MEAN CORPUSCULAR HEMOGLOBIN 27.4 pg (28.0-32.0); MEAN CORPUSCULAR VOLUME 85.1 fL (80.0-94.0); MONOCYTES % 8.6 % (2.0-8.0); PLATELET 223 x1000/uL (130-400); RED BLOOD CELL COUNT 2.39 mill/uL (4.7-6.1); RED CELL DISTRIBUTION WIDTH 15.2 % (11.6-14.6)
[2021-11-01 03:05] LABS: HEMOGLOBIN. 6.5 g/dL (14.0-18.0)
[2021-11-01 03:06] LABS: HEMATOCRIT. 20.3 % (42.0-52.0)
[2021-11-01 03:07] LABS: CHLORIDE 102 mEq/L (98-107)
[2021-11-01 05:13] VITALS: BP 137/74
== END 2021-11-01 06:37 | disposition short-term general hospital (02) ==
LOC: ER 23:58
DX: D64.9 Anemia, unspecified (principal); I12.0 Hypertensive chronic kidney disease with stage 5 chronic kidney disease or end stage renal disease; E11.22 Type 2 diabetes mellitus with diabetic chronic kidney disease; N18.6 End stage renal disease; Z99.2 Dependence on renal dialysis; Z98.890 Other specified postprocedural states; Z79.899 Other long term (current) drug therapy; Z20.822 Contact with and (suspected) exposure to COVID-19
CPT/HCPCS: 36415; 71045; 80053; 82962; 83605; 83690; 84484; 85025; 86850; 86900; 86901; 87426; 93005; 99285; C1893; C9803; Z7610

== ENCOUNTER 2021-12-30 09:16 | Inpatient (IN) | payer MEDICAID, OTHER ==
[~2021-12-30] VITALS: Ht 167.6 cm; Wt 185.1 kg
[2021-12-30 10:22] LABS: EOSINOPHILS % 5.7 % (0.0-5.0); HEMATOCRIT. 24.5 % (42.0-52.0); HEMOGLOBIN. 8.1 g/dL (14.0-18.0); LYMPHOCYTES % 18.6 % (20.0-50.0); MEAN CORPUSCULAR VOLUME 84.8 fL (80.0-94.0); MEAN PLATELET VOLUME 8.6 fl (7.4-10.4); MONOCYTES % 10.5 % (2.0-8.0); NEUTROPHILS % 64.2 % (40.0-76.0); PLATELET 246 x1000/uL (130-400); RED BLOOD CELL COUNT 2.89 mill/uL (4.7-6.1); RED CELL DISTRIBUTION WIDTH 16.4 % (11.6-14.6)
[2021-12-30 10:29] LABS: CHLORIDE 103 mEq/L (98-107)
[2021-12-30] MEDS ORDERED: CEFTRIAXONE 1 G PREMIX 50 ML IV ONE (10:45)
[2021-12-30] MEDS ORDERED: AZITHROMYCIN 500MG/250ML 250 ML IV ONE (10:45)
[2021-12-30] MEDS ORDERED: CALCIUM CHLORIDE 1GM/10ML SYR IV ONE (11:30)
[2021-12-30] MEDS ORDERED: INSULIN REGULAR (HUMULIN R) 300UNITS/3ML VIAL IV ONE (11:30)
[2021-12-30] MEDS ORDERED: SODIUM BICARBONATE 8.4% 1 MEQ/ML 50ML SYR IV ONE (11:30)
[2021-12-30] MEDS ORDERED: DEXTROSE 50% WATER 50ML SYRINGE IV ONE (11:30)
[2021-12-30] MEDS ORDERED: ALBUTEROL (0.083%) 2.5MG/3ML NEB HHN ONE (11:30)
[2021-12-30] MEDS ORDERED: ALBUTEROL (0.5%) 2.5MG/0.5ML NEB HHN ONE (12:24)
[2021-12-30] MEDS ORDERED: ONDANSETRON HCL 4MG/2ML INJ IV PRN (12:45)
[2021-12-30] MEDS ORDERED: DIPHENHYDRAMINE 50MG/ML VIAL IV PRN (12:45)
[2021-12-30] MEDS ORDERED: IPRATROPIUM/ALBUTEROL 0.5-3(2.5)MG/3ML NEB HHN PRN (12:45)
[2021-12-30] MEDS ORDERED: CLONIDINE 0.1MG TABLET PO PRN (12:45)
[2021-12-30] MEDS ORDERED: ACETAMINOPHEN 325MG TABLET PO PRN (12:45)
[2021-12-30 13:05] VITALS: BP 130/66
[2021-12-30] MEDS ORDERED: FOLIC ACID/VITAMIN B COMP W-C TABLET PO SCH (13:45)
[2021-12-30 16:00] VITALS: BP 133/66
[2021-12-30] MEDS: CALCIUM ACETATE 667MG CAPSULE PO SCH (18:14)
[2021-12-30 20:00] VITALS: BP 116/74
[2021-12-30] MEDS: EPOETIN ALFA-EPBX 4,000 UNIT/ML VIAL SUBCUT SCH (22:01)
[2021-12-30] MEDS: ENOXAPARIN 150MG/ML SYR SUBCUT SCH (22:03)
[2021-12-31 00:33] VITALS: BP 116/63
[2021-12-31 04:00] VITALS: BP 132/68
[2021-12-31 08:00] VITALS: BP 144/73
[2021-12-31] MEDS: CALCIUM ACETATE 667MG CAPSULE PO SCH ×3 (08:15→17:54)
[2021-12-31] MEDS: FOLIC ACID/VITAMIN B COMP W-C TABLET PO SCH (08:15)
[2021-12-31 11:33] LABS: BASOPHILS % 1.3 % (0.0-2.0); EOSINOPHILS % 5.2 % (0.0-5.0); HEMATOCRIT. 23.7 % (42.0-52.0); HEMOGLOBIN. 7.8 g/dL (14.0-18.0); LYMPHOCYTES % 21.5 % (20.0-50.0); MEAN CORPUSCULAR HEMOGLOBIN 28.1 pg (28.0-32.0); MEAN CORPUSCULAR VOLUME 85.5 fL (80.0-94.0); MONOCYTES % 11.5 % (2.0-8.0); NEUTROPHILS % 60.5 % (40.0-76.0); RED BLOOD CELL COUNT 2.78 mill/uL (4.7-6.1); RED CELL DISTRIBUTION WIDTH 16.8 % (11.6-14.6)
[2021-12-31 11:45] LABS: INR 1.2; PROTHROMBIN TIME 12.8 sec (9.6-11.0)
[2021-12-31 12:00] VITALS: BP 137/70
[2021-12-31 12:05] LABS: CHLORIDE 102 mEq/L (98-107)
[2021-12-31 13:29] LABS: PHOSPHORUS 8.4 mg/dL (2.5-4.9)
[2021-12-31 14:46] LABS: MEAN PLATELET VOLUME 9.2 fl (7.4-10.4); PLATELET 193 x1000/uL (130-400)
[2021-12-31 16:00] VITALS: BP 141/73
[2021-12-31] MEDS: ENOXAPARIN 150MG/ML SYR SUBCUT SCH (20:14)
[2021-12-31 20:22] VITALS: BP 143/80
[2022-01-01 00:05] VITALS: BP 107/64
[2022-01-01 04:00] VITALS: BP 117/68
[2022-01-01 08:00] VITALS: BP 118/70
[2022-01-01] MEDS: FOLIC ACID/VITAMIN B COMP W-C TABLET PO SCH (09:25)
[2022-01-01 12:00] VITALS: BP 119/75
[2022-01-01] MEDS ORDERED: CALCIUM ACETATE 667MG CAPSULE PO SCH (13:10)
[2022-01-01 16:00] VITALS: BP 143/64
[2022-01-01 16:15] LABS: BASOPHILS % 0.5 % (0.0-2.0); EOSINOPHILS % 4.4 % (0.0-5.0); HEMATOCRIT. 25.4 % (42.0-52.0); HEMOGLOBIN. 8.3 g/dL (14.0-18.0); LYMPHOCYTES % 33.3 % (20.0-50.0); MEAN CORPUSCULAR VOLUME 85.5 fL (80.0-94.0); MEAN PLATELET VOLUME 8.5 fl (7.4-10.4); MONOCYTES % 11.6 % (2.0-8.0); NEUTROPHILS % 50.2 % (40.0-76.0); PLATELET 204 x1000/uL (130-400); RED BLOOD CELL COUNT 2.97 mill/uL (4.7-6.1); RED CELL DISTRIBUTION WIDTH 16.6 % (11.6-14.6)
[2022-01-01 20:24] VITALS: BP 155/72
[2022-01-01] MEDS: EPOETIN ALFA-EPBX 4,000 UNIT/ML VIAL SUBCUT SCH (20:36)
[2022-01-01] MEDS: ENOXAPARIN 150MG/ML SYR SUBCUT SCH (20:36)
[2022-01-02] VITALS (7 sets, daily range): BP systolic 107–170; BP diastolic 47–88
[2022-01-02] MEDS: FOLIC ACID/VITAMIN B COMP W-C TABLET PO SCH (09:09)
[2022-01-02] MEDS ORDERED: AMLO2.5T2 MT (14:37)
[2022-01-02] MEDS: ENOXAPARIN 150MG/ML SYR SUBCUT SCH (20:24)
[2022-01-03] VITALS: BP 145/77
[2022-01-03 04:00] VITALS: BP 161/74
[2022-01-03 08:00] VITALS: BP 131/60
[2022-01-03] MEDS: FOLIC ACID/VITAMIN B COMP W-C TABLET PO SCH (09:07)
[2022-01-03 12:00] VITALS: BP 140/47
== END 2022-01-03 13:45 | disposition home or self-care (01) | DRG 425 ==
LOC: ER 09:16 → EDBEDREQ 11:43 → EDBEDREQTM 11:43 → 7WST 14:14
PROVIDERS: ADMIT Internal Medicine; ATTEND Internal Medicine
PROC: 3E1M39Z Irrigation of Peritoneal Cavity using Dialysate, Percutaneous Approach (ICD-10-PCS; principal; 2021-12-30)
PROC: 3E1M39Z Irrigation of Peritoneal Cavity using Dialysate, Percutaneous Approach (ICD-10-PCS; 2021-12-31)
PROC: 3E1M39Z Irrigation of Peritoneal Cavity using Dialysate, Percutaneous Approach (ICD-10-PCS; 2022-01-01)
PROC: 3E1M39Z Irrigation of Peritoneal Cavity using Dialysate, Percutaneous Approach (ICD-10-PCS; 2022-01-02)
DX: E87.5 Hyperkalemia (principal); E43 Unspecified severe protein-calorie malnutrition; I12.0 Hypertensive chronic kidney disease with stage 5 chronic kidney disease or end stage renal disease; J44.0 Chronic obstructive pulmonary disease with (acute) lower respiratory infection; E83.51 Hypocalcemia; T87.89 Other complications of amputation stump; E11.22 Type 2 diabetes mellitus with diabetic chronic kidney disease; D64.9 Anemia, unspecified; N18.6 End stage renal disease; E87.70 Fluid overload, unspecified; E03.9 Hypothyroidism, unspecified; E78.00 Pure hypercholesterolemia, unspecified; H54.7 Unspecified visual loss; E11.51 Type 2 diabetes mellitus with diabetic peripheral angiopathy without gangrene; R74.8 Abnormal levels of other serum enzymes; R74.01 Elevation of levels of liver transaminase levels; Z20.822 Contact with and (suspected) exposure to COVID-19; Y83.5 Amputation of limb(s) as the cause of abnormal reaction of the patient, or of later complication, without mention of misadventure at the time of the procedure; Y92.89 Other specified places as the place of occurrence of the external cause; Z89.512 Acquired absence of left leg below knee; Z99.2 Dependence on renal dialysis; Z86.718 Personal history of other venous thrombosis and embolism; Z95.828 Presence of other vascular implants and grafts; Z79.899 Other long term (current) drug therapy; Z89.511 Acquired absence of right leg below knee; Z68.44 Body mass index [BMI] 60.0-69.9, adult
CPT/HCPCS: 36415; 71045; 80048; 80053; 82962; 83880; 84100; 84484; 85025; 87426; 93005; 93970; 94640; 99285; C1893; C9803; J0456; J0696; J0885; J1650; J1815; J3490

== ENCOUNTER 2022-01-08 20:53 | Emergency (ER) | payer OTHER ==
[~2022-01-08] VITALS: Ht 154.9 cm; Wt 114.0 kg
[~2022-01-08 20:53] MED LIST changes: +AMLO2.5T2 MT; -MIDO2.5T MT
[2022-01-08] MEDS ORDERED: MORPHINE SULFATE 4 MG/ML CPJ (NOT FOR IM USE) IV STA (21:45)
[2022-01-08 23:01] LABS: BASOPHILS % 1.1 % (0.0-2.0); EOSINOPHILS % 5.6 % (0.0-5.0); HEMATOCRIT. 23.2 % (42.0-52.0); HEMOGLOBIN. 7.6 g/dL (14.0-18.0); LYMPHOCYTES % 25.3 % (20.0-50.0); MEAN CORPUSCULAR HEMOGLOBIN 27.9 pg (28.0-32.0); MEAN CORPUSCULAR VOLUME 84.8 fL (80.0-94.0); MEAN PLATELET VOLUME 8.2 fl (7.4-10.4); MONOCYTES % 11.4 % (2.0-8.0); NEUTROPHILS % 56.6 % (40.0-76.0); PLATELET 180 x1000/uL (130-400); RED BLOOD CELL COUNT 2.73 mill/uL (4.7-6.1); RED CELL DISTRIBUTION WIDTH 16.6 % (11.6-14.6)
[2022-01-08 23:07] LABS: CHLORIDE 101 mEq/L (98-107)
[2022-01-08 23:35] VITALS: BP 163/86
[2022-01-09] MEDS ORDERED: CEFTRIAXONE 1 G PREMIX 50 ML IV NR (00:15)
[2022-01-09] MEDS ORDERED: CLONIDINE 0.2MG TABLET PO NR (00:15)
== END 2022-01-09 03:28 | disposition short-term general hospital (02) ==
LOC: ER 20:53
DX: R53.1 Weakness (principal); E87.5 Hyperkalemia; Z91.15 Patient's noncompliance with renal dialysis; R19.7 Diarrhea, unspecified; D64.9 Anemia, unspecified; E11.622 Type 2 diabetes mellitus with other skin ulcer; L89.301 Pressure ulcer of unspecified buttock, stage 1; I12.0 Hypertensive chronic kidney disease with stage 5 chronic kidney disease or end stage renal disease; E11.22 Type 2 diabetes mellitus with diabetic chronic kidney disease; N18.6 End stage renal disease; Z99.2 Dependence on renal dialysis; Z89.512 Acquired absence of left leg below knee; Z89.511 Acquired absence of right leg below knee
CPT/HCPCS: 36415; 80053; 82962; 84145; 85025; 96365; 96375; 99285; J0696; J2270